=== PATIENT | female | born 1945 | race Caucasian/White ===

== ENCOUNTER 2021-05-09 19:26 | Emergency (ER) | payer MEDICARE, OTHER ==
[~2021-05-09] VITALS: Ht 165.1 cm; Wt 95.2 kg
[2021-05-09 20:01] LABS: BASOPHILS ABSOLUTE AUTO 0.06 K/mm3 (0.00-0.23); BASOPHILS PERCENT AUTO 1 % (0-2); EOSINOPHILS ABSOLUTE AUTO 0.04 K/mm3 (0.00-0.68); EOSINOPHILS PERCENT AUTO 0 % (0-6); Hematocrit 40.6 % (33.0-51.0); IMMATURE GRAN ABSOLUTE AUTO 0.04 K/mm3 (0.00-0.10); IMMATURE GRAN PERCENT AUTO 0 % (0-1); LYMPHOCYTES ABSOLUTE AUTO 0.79 K/mm3 (0.84-5.20); LYMPHOCYTES PERCENT AUTO 7 % (21-46); MONOCYTES ABSOLUTE AUTO 0.92 K/mm3 (0.16-1.47); MONOCYTES PERCENT AUTO 9 % (4-13); Mean Corpuscular Volume 94 fL (80-100); Mean Platelet Volume 9.1 fL (9.1-12.4); NEUTROPHILS ABSOLUTE AUTO 8.83 K/mm3 (1.96-9.15); NEUTROPHILS PERCENT AUTO 83 % (41-73); Platelet Count 212 K/mm3 (150-400); RDW Coefficient Variation 12.6 % (11.7-14.2); RDW Standard Deviation 43.5 fL (35.1-46.3); Red Blood Cell Count 4.34 M/mm3 (3.80-5.20); White Blood Cell Count 10.68 K/mm3 (4.00-11.30)
[2021-05-09 20:11] LABS: Alanine Aminotransfer (ALT/SGP 15 U/L (12-78); Albumin, Blood 2.9 g/dL (3.4-5.0); Albumin/Globulin Ratio 0.7 (0.8-1.8); Alk Phos 96 U/L (50-136); Anion Gap 5 mmol/L (6-16); Aspartate Aminotrans (AST/SGOT 18 U/L (12-37); Bilirubin, Total 0.6 mg/dL (0.1-1.0); Blood Urea Nitrogen 16 mg/dL (8-24); Bun/Creatinine Ratio 15.4 (12.0-20.0); CO2, Blood 25 mmol/L (21-32); Calcium, Blood 8.6 mg/dL (8.5-10.1); Chloride, Blood 108 mmol/L (98-108); Creatinine, Blood 1.04 mg/dL (0.40-1.00); Globulin, Blood 3.9 g/dL (2.2-4.0); Glomerular Filtration Rate 51 (60-); Glucose, Blood 148 mg/dL (70-99); Potassium, Blood 4.2 mmol/L (3.5-5.5); Sodium, Blood 138 mmol/L (136-145); Total Protein, Blood 6.8 g/dL (6.4-8.2); Troponin I <0.015 ng/mL (0.000-0.040)
[2021-05-09 21:24] LABS: Source, Urine Catheter
[2021-05-09 21:29] LABS: Appearance, Urine Cloudy (Clear); Bilirubin, Urine Neg (Neg); Blood, Urine 5+ (Neg); Color, Urine Yellow (P-Yellow); Glucose Qualitative, Urine Neg (Neg); Ketones, Urine Neg (Neg); Leukocyte Esterase, Urine 3+ (Neg); Nitrite, Urine Pos (Neg); Protein, Urine 3+ (Neg); Urobilinogen, Urine NORM (Normal); pH, Urine 6.5 (5.0-8.0)
[2021-05-09 21:35] LABS: Bacteria Mod /hpf; Red Blood Cells, Urine TNTC /hpf (0-2); Squamous Epithelial Cells Not Seen /hpf (Few); White Blood Cells, Urine TNTC /hpf (0-5)
[2021-05-09] MEDS ORDERED: CIPR500 PO (23:19)
== END 2021-05-09 23:40 | disposition home or self-care (01) ==
LOC: ER 19:26
PROVIDERS: Student in an Organized Health Care Education/Training Program
DX: N39.0 Urinary tract infection, site not specified (principal); E86.0 Dehydration; Z86.711 Personal history of pulmonary embolism; Z85.118 Personal history of other malignant neoplasm of bronchus and lung
CPT/HCPCS: 36415; 80053; 81001; 84484; 85025; 87077; 87086; 87186; 93005; 93010; 96365; 99284-25; J0696; J7030; P9612

== ENCOUNTER 2022-12-21 20:11 | Inpatient (IN) | payer OTHER, MEDICARE ==
[~2022-12-21] VITALS: Ht 162.6 cm; Wt 78.0 kg
[~2022-12-21 20:11] MED LIST: CIPR500 PO; JANTOVEN5 M2 PO; Nitrofurantoin100 M1 PO; PREGABALIN100 MG PO
[2022-12-21 22:50] LABS: BASOPHILS ABSOLUTE AUTO 0.07 K/mm3 (0.00-0.23); BASOPHILS PERCENT AUTO 1 % (0-2); EOSINOPHILS ABSOLUTE AUTO 0.08 K/mm3 (0.00-0.68); EOSINOPHILS PERCENT AUTO 1 % (0-6); Hematocrit 39.3 % (33.0-51.0); Hemoglobin 12.8 g/dL (11.5-16.0); IMMATURE GRAN ABSOLUTE AUTO 0.04 K/mm3 (0.00-0.10); IMMATURE GRAN PERCENT AUTO 0 % (0-1); LYMPHOCYTES ABSOLUTE AUTO 1.94 K/mm3 (0.84-5.20); LYMPHOCYTES PERCENT AUTO 19 % (21-46); MONOCYTES ABSOLUTE AUTO 0.94 K/mm3 (0.16-1.47); MONOCYTES PERCENT AUTO 9 % (4-13); Mean Corpuscular HGB Conc 32.6 g/dL (31.5-36.5); Mean Corpuscular Volume 92 fL (80-100); Mean Platelet Volume 9.6 fL (9.1-12.4); NEUTROPHILS PERCENT AUTO 70 % (41-73); NRBC ABSOLUTE 0.02 K/mm3 (0.00-0.02); NRBC Auto 0.2 /100 WBC (0.0-0.2); Platelet Count 167 K/mm3 (150-400); RDW Coefficient Variation 14.2 % (11.7-14.2); RDW Standard Deviation 47.8 fL (35.1-46.3); Red Blood Cell Count 4.27 M/mm3 (3.80-5.20); White Blood Cell Count 10.07 K/mm3 (4.00-11.30)
[2022-12-21 22:57] LABS: Source, Urine Clean Catch
[2022-12-21 23:01] LABS: Bilirubin, Urine Neg (Neg); Blood, Urine 5+ (Neg); Glucose Qualitative, Urine Neg (Neg); Ketones, Urine Neg (Neg); Leukocyte Esterase, Urine 3+ (Neg); Nitrite, Urine Pos (Neg); Protein, Urine 3+ (Neg); Urobilinogen, Urine NORM (Normal)
[2022-12-21 23:04] LABS: Appearance, Urine Cloudy (Clear); Color, Urine Yellow (P-Yellow)
[2022-12-21 23:05] LABS: International Normalized Ratio 2.08
[2022-12-21 23:07] LABS: Amorphous Light (0-Heavy); Bacteria Many /hpf; Red Blood Cells, Urine 0-2 /hpf (0-2); Squamous Epithelial Cells Not Seen /hpf (Few); White Blood Cells, Urine TNTC /hpf (0-5)
[2022-12-21 23:10] LABS: Albumin, Blood 3.3 g/dL (3.4-5.0); Albumin/Globulin Ratio 0.8 (0.8-1.8); Bilirubin, Total 0.3 mg/dL (0.1-1.0); Bun/Creatinine Ratio 24.8 (12.0-20.0); Calcium, Blood 9.5 mg/dL (8.5-10.1); Creatinine, Blood 1.09 mg/dL (0.40-1.00); Globulin, Blood 4.3 g/dL (2.2-4.0); Potassium, Blood 4.6 mmol/L (3.5-5.5); Total Protein, Blood 7.6 g/dL (6.4-8.2)
--- NOTE | 2022-12-22 01:13 | NUR ---
PT HERE VIA [facility] FROM ER. PT TRANSFERRED TO MEDICAL FLOOR BED WITH SLIDER SHEET. PT DENIES ANY PAIN AT THIS TIME. PT DOES EXPERIENCE PAIN WITH MOVEMENT FROM SIDE TO SIDE FOR SHEET REMOVAL, BUT ONCE SETTLED BACK INTO BED, DENIES ANY PAIN. PT'S SKIN COLOR IS PALE. PT IS FOLLOWED BY [facility] FOR COCCYX WOUND, THAT SHANNON, SON REPORTS IS HEALING. SHANNON IS IN THE PROCESS OF MOVING IN WITH HIS MOTHER. HE IS CURRENTLY THE PRIMARY CAREGIVER TO HER. OTHERWISE, SHE LIVES INDEPENDENTLY AT HOME. REVIEWED CALL LIGHT, PHONE, AND ORIENTED TO ROOM. BED ALARM ON FOR SAFETY. INCENTIVE SPIROMETER PROVIDED WITH INSTRUCTIONS - PT DEMONSTRATED USE. WILL CONTINUE TO MONITOR THROUGHOUT THE NIGHT. LR INFUSING UPON ADMISSION TO ROOM.
[2022-12-22 01:23] VITALS: BP 121/57
[2022-12-22] MEDS ORDERED: CETI5 PO (01:52)
[2022-12-22] MEDS ORDERED: OMEP20ER PO (01:52)
[2022-12-22] MEDS ORDERED: DOCU100 PO (01:54)
[2022-12-22] MEDS ORDERED: THERA-D2000 UNIT PO (01:54)
[2022-12-22] MEDS ORDERED: LACT PO (01:55)
--- NOTE | 2022-12-22 03:00 | NUR ---
PT IS SLEEPING. CALL LIGHT IN REACH. BED ALARM.
[2022-12-22 05:11] VITALS: BP 95/56
--- NOTE | 2022-12-22 05:57 | NUR ---
SHIFT SUMMARY - NO ACUTE CHANGES SINCE ADMIT LAST NOC. PT DEMONSTRATED USE OF INCENTIVE SPIROMETER SHORTLY AFTER ADMIT. PT'S SKIN COLOR CONTINUES PALE. PT HAS BEEN SLEEPING FOR APPX 3 HOURS. PT AWAKENS TO VERBAL COMMUNICATION THIS AM, PT FLOATED ON PILLOWS. PT HAS HER OWN ATTENDS ON, CONTINUE DRY SINCE ADMIT. PT DIDN'T REPORT ANY PAIN WHEN REPOSITIONED THIS AM, AND DRIFTED OFF BACK TO SLEEP AFTER REPOSITIONING. PT AND SON, SHANNON DID REPORT PT HAD A COUGHING EPISODE AFTER TAKING HER COUMADIN PRIOR TO ADMIT. CALL LIGHT WITHIN REACH. BED IN LOW POSITION. BED ALARM ON FOR PT SAFETY. WILL CONTINUE TO MONITOR UNTIL AM SHIFT CHANGE.
--- NOTE | 2022-12-22 06:32 | NUR ---
CONTACTED DR. WHELAN - UPDATED ON PT'S LS WITH CRACKLES AND WHEEZES THROUGHOUT - AND REPORTED SHE IS ON RA - HE REPORTED TO CONTINUE TO MONITOR HER. SATS WNL ON RA. WILL REPORT THIS OFF TO ONCOMING SHIFT.
[2022-12-22 07:36] VITALS: BP 101/56
[2022-12-22 15:32] VITALS: BP 100/60
--- NOTE | 2022-12-22 18:47 | NUR ---
SHIFT SUMMARY PT AXO, PLEASANT AND COOPERATIVE WITH CARE THOUGH [place]. PT LUNG SOUND COARSE AND WHEEZY THROUGHOUT THE SHIFT. RT FOR BREATHING TREATMENTS, FLUTTER VALUE AND I.S. PT O2 92-94 THOUGHOUT THE SHIFT THOUGH AT 1800, PT SON NOTIFIED NURSE THAT PT BREATHING WHILE ASLEEP SOUNDED "BAD." THIS NURSE IN TO ASSESS AT PT O2 SAT DROPPED TO 86% ON RA. PT PLACED ON 2.5 L AND IS 94% AT THIS TIME. PT NPO EXCEPT MEDS WHOLE IN APPLESAUCE AWAITING SWALLOW EVAL. PT'S SON WOULD LIKE PATIENT TO BE EVALUATED BY PHYSICAL THERAPY PRIOR TO DC HOME. PT INCONTINENT. ATTENDS IN PLACE. MEPILEX TO COCCYX AND PHOTO OF COCCYX IN CHART. BED IN LOW POSITION, CALL LIGHT WITHIN REACH. PTS SON AT BEDSIDE.
[2022-12-22] MEDS ORDERED: WARF5 PO (19:26)
[2022-12-22] MEDS ORDERED: TEMOVATE15 G1 TOP (19:30)
[2022-12-22] MEDS ORDERED: Ketoconazole120 ML TOP (19:31)
[2022-12-22] MEDS ORDERED: METR59TL TOP (19:34)
[2022-12-22] MEDS ORDERED: ESTRADIOL42.5 GM TOP (19:35)
[2022-12-23 05:02] LABS: Hematocrit 34.6 % (33.0-51.0); Hemoglobin 11.4 g/dL (11.5-16.0); Mean Corpuscular HGB 29.8 pg (26.0-34.0); Mean Corpuscular HGB Conc 32.9 g/dL (31.5-36.5); Mean Corpuscular Volume 90 fL (80-100); Mean Platelet Volume 9.7 fL (9.1-12.4); Platelet Count 170 K/mm3 (150-400); RDW Coefficient Variation 14.1 % (11.7-14.2); RDW Standard Deviation 47.1 fL (35.1-46.3); Red Blood Cell Count 3.83 M/mm3 (3.80-5.20); White Blood Cell Count 15.64 K/mm3 (4.00-11.30)
[2022-12-23 05:19] LABS: International Normalized Ratio 2.5; Prothrombin Time Results 24.9 Sec (9.7-11.5)
[2022-12-23 05:29] LABS: Bun/Creatinine Ratio 31.6 (12.0-20.0); Calcium, Blood 8.9 mg/dL (8.5-10.1); Creatinine, Blood 0.92 mg/dL (0.40-1.00); Potassium, Blood 4.9 mmol/L (3.5-5.5)
--- NOTE | 2022-12-23 06:26 | NUR ---
O2 SATS STEADY AT 88% ON RA, PLACED ON 5L NC TO STABILIZE THEN REDUCED TO 2L TO MAINTAIN. COARSE AND WHEEZING LUNG SOUNDS. TOLERATING PILLS CRUSHED IN APPLESAUCE WITH NO SIGNS OF ASPIRATING. OXYCODONE 5 MG X2 FOR R RIB PAIN. IV IS POSITIONAL BUT FLUSHES NICELY. ORIENTED WITH INTERMITTENT CONFUSION, PLEASANT, FORGETS TO USE CALL LIGHT WHEN SHE NEEDS ASSISTANCE, ROUND REGULARLY.
[2022-12-23 08:02] VITALS: BP 101/60
--- NOTE | 2022-12-23 11:27 | NUR ---
LATE ENTRY: 10AM PT REMAINS A&O X3, STARTED TALKING ABOUT PEOPLE ON THE TV ARE HER FRIENDS AND IS STATING "NOW READY FOR HER SURGERY TO BE A MAN". SON IN ROOM STATING UNLIKE HER. DR. ARROYO AWARE, VERBAL ORDERS RECEIVED TO CHANGE MEDS.
[2022-12-23 16:21] VITALS: BP 94/56
--- NOTE | 2022-12-23 17:43 | NUR ---
SHIFT SUMMARY: Pt alert and oriented throughout shift with episodes of confusion. Meds changed as ordered. No further c/o pain after am narcotic. Up to chair with PT. Back to bed at 1500 with 2 person ast. Redness noted to to coccyx. Mepiplex placed. Pt recs rehab, pt son who cares for pt agreeable to plan. Lung sounds diminished, on 3L nc. IS spirometer and flutter valve utilized. Pt tolerating nectar thick without straws. Swallowing pills whole without difficulty.
[2022-12-23 19:42] VITALS: BP 108/56
[2022-12-24 02:43] VITALS: BP 137/74
[2022-12-24 05:37] LABS: BASOPHILS ABSOLUTE AUTO 0.02 K/mm3 (0.00-0.23); BASOPHILS PERCENT AUTO 0 % (0-2); EOSINOPHILS ABSOLUTE AUTO 0.01 K/mm3 (0.00-0.68); EOSINOPHILS PERCENT AUTO 0 % (0-6); Hematocrit 34.7 % (33.0-51.0); Hemoglobin 11.5 g/dL (11.5-16.0); IMMATURE GRAN ABSOLUTE AUTO 0.17 K/mm3 (0.00-0.10); IMMATURE GRAN PERCENT AUTO 1 % (0-1); LYMPHOCYTES ABSOLUTE AUTO 0.93 K/mm3 (0.84-5.20); LYMPHOCYTES PERCENT AUTO 7 % (21-46); MONOCYTES ABSOLUTE AUTO 0.43 K/mm3 (0.16-1.47); MONOCYTES PERCENT AUTO 3 % (4-13); Mean Corpuscular HGB 30.2 pg (26.0-34.0); Mean Corpuscular HGB Conc 33.1 g/dL (31.5-36.5); Mean Corpuscular Volume 91 fL (80-100); Mean Platelet Volume 9.9 fL (9.1-12.4); NEUTROPHILS ABSOLUTE AUTO 12.73 K/mm3 (1.96-9.15); NEUTROPHILS PERCENT AUTO 89 % (41-73); Platelet Count 175 K/mm3 (150-400); RDW Coefficient Variation 14.4 % (11.7-14.2); RDW Standard Deviation 47.7 fL (35.1-46.3); Red Blood Cell Count 3.81 M/mm3 (3.80-5.20); White Blood Cell Count 14.29 K/mm3 (4.00-11.30)
[2022-12-24 05:49] LABS: International Normalized Ratio 2.68; Prothrombin Time Results 26.6 Sec (9.7-11.5)
[2022-12-24 06:02] LABS: Bun/Creatinine Ratio 33.8 (12.0-20.0); Calcium, Blood 8.9 mg/dL (8.5-10.1); Creatinine, Blood 0.98 mg/dL (0.40-1.00); Potassium, Blood 4.6 mmol/L (3.5-5.5)
--- NOTE | 2022-12-24 06:19 | NUR ---
COARSE, WET LUNG SOUNDS, ORIENTED AT START OF SHIFT, AOX2 DURING THE NIGHT. DID NOT SLEEP UNTIL APPROXIMATELY 0400. MEDICATED FOR R RIB PAIN. SHALLOW BREATHING WITH OCCASIONAL DEEP BREATH AND COUGH. COOPERATIVE WITH CARES.
[2022-12-24 07:37] VITALS: BP 113/63
[2022-12-24 17:35] VITALS: BP 100/57
--- NOTE | 2022-12-24 18:14 | NUR ---
SHIFT SUMMARY: Pt remains A&O X3 with bouts of confusion. Pain managed with scheduled regime. Up to bathroom with 1 person ast and walker. Up in chair since noon. VSS. Resp even nonlabored. Oxygen titrated from 3L to RA. O2 sat 92-93%. Tolerating nectar thick with whole pills. IVF dc'd as ordered. Incontinent of bladder. Brief in place. Hygiene care provided as needed. Son at bedside. No c/o. Will continue to follow this shift
[2022-12-25 05:19] LABS: International Normalized Ratio 2.41; Prothrombin Time Results 24.1 Sec (9.7-11.5)
--- NOTE | 2022-12-25 06:19 | NUR ---
O2 SATS AT 92-94 ON RA, COARSE AND WHEEZING LUNG SOUNDS WITH OCCASIONAL COUGH WITH SCANT PRODUCTION. COUGHING INCREASES R RIB FRACTURE PAIN. TRAMADOL AT ~ 0500. CONFUSION ABOUT PLACE AND CURRENT SITUATION BUT REDIRECTABLE AND PLEASANT. INCONTINENT OF URINE. X1 ASSIST WITH WALKER AND GB TO TRANSFER FROM CHAIR TO BED. TOLERATING THICKENED LIQUIDS AND WHOLE PILLS.
[2022-12-25 07:49] VITALS: BP 123/58
[2022-12-25 07:53] VITALS: BP 123/58
[2022-12-25] MEDS ORDERED: ACET325 PO (10:00)
[2022-12-25] MEDS ORDERED: ALBU2.5V5 INH (10:01)
[2022-12-25] MEDS ORDERED: ACET500 PO (10:01)
[2022-12-25] MEDS ORDERED: CEPH500 PO (10:01)
[2022-12-25] MEDS ORDERED: TRAM50 PO (10:02)
--- NOTE | 2022-12-25 14:05 | NUR ---
DISCHARGE NOTE PT DISCHARGED TO [facility], TRANSPORTED BY HER SON, SHANNON. O2 WAS PROVIDED FOR TRANSPORT AND HER SON IS GOING TO RETURN THE TANK. IV WAS REMOVED SUCCESSFULLY BY THE MASTER PILOT. REPORT WAS GIVEN TO CECILE BENNETT RN, AT [facility]. PERSONAL BELONGINGS ALSO RETURNED. PT WAS TAKEN TO HIS VEHCILE BY THE MASTER PILOT AND MASTER PILOT STUDENT.
== END 2022-12-25 14:00 | DRG 184 ==
LOC: ER 20:11 → MEDS 20:12 → ENPENDDIS 12-25 08:19 → MEDS 12-25 14:00
PROVIDERS: Internal Medicine; Student in an Organized Health Care Education/Training Program; ADMIT Internal Medicine
DX: S22.41XA Multiple fractures of ribs, right side, initial encounter for closed fracture (principal); J44.1 Chronic obstructive pulmonary disease with (acute) exacerbation; N39.0 Urinary tract infection, site not specified; G62.9 Polyneuropathy, unspecified; R82.998 Other abnormal findings in urine; R13.10 Dysphagia, unspecified; Z88.2 Allergy status to sulfonamides; Z86.711 Personal history of pulmonary embolism; Z79.01 Long term (current) use of anticoagulants; Z79.2 Long term (current) use of antibiotics; Z85.118 Personal history of other malignant neoplasm of bronchus and lung; W01.198A Fall on same level from slipping, tripping and stumbling with subsequent striking against other object, initial encounter; Y92.002 Bathroom of unspecified non-institutional (private) residence as the place of occurrence of the external cause
CPT/HCPCS: 36415; 70450; 71100; 72125; 74230; 80048; 80053; 81001; 85025; 85027; 85610; 87077; 87086; 87186; 92526; 92610; 92611; 94640; 94664; 94760; 96374-59; 96375; 96375-59; 97110; 97162; 97166; 97530; 97535; 99285-25; A9270; G0378; J0696; J1885; J2270; J2920; J3010; J7030; J7120; J7512

== ENCOUNTER 2023-01-21 17:14 | Inpatient (IN) | payer MEDICARE, OTHER ==
[~2023-01-21] VITALS: Ht 170.2 cm; Wt 73.5 kg
[~2023-01-21 17:14] MED LIST changes: +ACET325 PO; +ACET500 PO; +ALBU2.5V5 INH; +CEPH500 PO; +CETI5 PO; +DOCU100 PO; +ESTRADIOL42.5 GM TOP; +Ketoconazole120 ML TOP; +LACT PO; +METR59TL TOP; +OMEP20ER PO; +TEMOVATE15 G1 TOP; +THERA-D2000 UNIT PO; +TRAM50 PO; +WARF5 PO
[2023-01-21 18:03] LABS: BASOPHILS ABSOLUTE AUTO 0.04 K/mm3 (0.00-0.23); BASOPHILS PERCENT AUTO 0 % (0-2); EOSINOPHILS ABSOLUTE AUTO 0.01 K/mm3 (0.00-0.68); EOSINOPHILS PERCENT AUTO 0 % (0-6); Hematocrit 39.4 % (33.0-51.0); Hemoglobin 13.2 g/dL (11.5-16.0); IMMATURE GRAN ABSOLUTE AUTO 0.07 K/mm3 (0.00-0.10); IMMATURE GRAN PERCENT AUTO 1 % (0-1); LYMPHOCYTES ABSOLUTE AUTO 0.94 K/mm3 (0.84-5.20); LYMPHOCYTES PERCENT AUTO 7 % (21-46); MONOCYTES ABSOLUTE AUTO 1.26 K/mm3 (0.16-1.47); MONOCYTES PERCENT AUTO 9 % (4-13); Mean Corpuscular HGB 30.6 pg (26.0-34.0); Mean Corpuscular HGB Conc 33.5 g/dL (31.5-36.5); Mean Corpuscular Volume 91 fL (80-100); NEUTROPHILS ABSOLUTE AUTO 11.54 K/mm3 (1.96-9.15); NEUTROPHILS PERCENT AUTO 83 % (41-73); Platelet Count 204 K/mm3 (150-400); RDW Coefficient Variation 13.6 % (11.7-14.2); RDW Standard Deviation 46.1 fL (35.1-46.3); Red Blood Cell Count 4.32 M/mm3 (3.80-5.20); White Blood Cell Count 13.86 K/mm3 (4.00-11.30)
[2023-01-21 18:21] LABS: Albumin, Blood 2.7 g/dL (3.4-5.0); Albumin/Globulin Ratio 0.6 (0.8-1.8); Bilirubin, Total 0.4 mg/dL (0.1-1.0); Bun/Creatinine Ratio 20.6 (12.0-20.0); Calcium, Blood 8.9 mg/dL (8.5-10.1); Creatinine, Blood 0.87 mg/dL (0.40-1.00); Globulin, Blood 4.5 g/dL (2.2-4.0); Potassium, Blood 3.8 mmol/L (3.5-5.5); Total Protein, Blood 7.2 g/dL (6.4-8.2)
[2023-01-21 22:04] VITALS: BP 105/66
[2023-01-21 23:47] LABS: Anti-Xa UFH, PHA Monitoring <0.10 IU/mL; Prothrombin Time Results 60.9 Sec (9.7-11.5)
[2023-01-21 23:48] LABS: International Normalized Ratio 6.45
[2023-01-22] VITALS (7 sets, daily range): BP systolic 96–109; BP diastolic 47–63
[2023-01-22 03:53] LABS: Albumin, Blood 2.3 g/dL (3.4-5.0); Albumin/Globulin Ratio 0.5 (0.8-1.8); Bilirubin, Total 0.3 mg/dL (0.1-1.0); Bun/Creatinine Ratio 23.9 (12.0-20.0); Calcium, Blood 8.2 mg/dL (8.5-10.1); Creatinine, Blood 0.79 mg/dL (0.40-1.00); Globulin, Blood 4.2 g/dL (2.2-4.0); Potassium, Blood 3.6 mmol/L (3.5-5.5); Total Protein, Blood 6.5 g/dL (6.4-8.2)
[2023-01-22 09:19] LABS: Prothrombin Time Results 75.5 Sec (9.7-11.5)
[2023-01-22 09:20] LABS: International Normalized Ratio 8.09
--- NOTE | 2023-01-22 10:38 | NUR ---
AM NOTES: PT ALERT AND ORIENTED X2, PLEASANT AND COOPERATIVE WITH CARES, ANSWERS QUESTIONS APPROPRIATELY BUT HAS SOME CONFUSION. VITALS HRR SR 75, SBP SOFT 80-90'S, MAP >60, SATS KEPT ABOVE 90% ON 8L OF O2 VIA HI AURA, AFEBRILE. LUNGS WITH WHEEZES AND CRACKLES UPON AUSCULTATION INCENTIVE SPIROMETER PER PROVIDER, BREATHING TX PER RT. PT'S LAST INR WENT UP TO 8.06 FROM [address] REYES TO MONITOR PT FOR NOW SINCE PT DOESNT HAVE ANY ACTIVE BLEEDING, TO RECHECK INR TOMORROW PER PHARMACY. PT WAS SEEN BY SPEECH THERAPIST THIS MORNING TO START ON MECH SOFT NECTAR THICK LIQUID, MEDS WHOLE WITH APPLESAUCE. PT TO REMAIN BEDREST DUE TO HIGH INR LEVEL. PT IN BED RESTING PUREWICK IN PLACE WORKING APPROPRIATELY, DENIES CHEST DYSON/PRESSURE BACK PAIN WITH REPOSTIONING. NO OTHER ISSUES AT THIS TIME, WILL CONTINUE TO MONITOR
--- NOTE | 2023-01-22 19:05 | NUR ---
SEE AM NOTES: NO ACUTE CHNAGE FOR THE SHIFT PT REMAINED ALERT AND ORIENTED 2-3 FORGETFUL AT TIMES, ABLE TO ANSWER QUESTIONS APPROPRIATELY, ABLE TO MAKE NEEDS KNOWN. VITALS HRR SR 70'S, SBP 90-100'S MAP KEPT ABOVE 60, SATS ABOVE 90% ON 6L OF O2, AFEBRILE. PT HASNT HAD ANY URINE OUTPUT FOR THE DAY, PT WAS BLADDER SCANNED AND HAD >400MLS URINE RETAINED, STRAIGHT CATH WAS PERFORMED PT HAD 550MLS DARK CLOUDY URINE OUT, PUREWICK WAS REPLACED. PT TOLERATING MECH SOFT AND NECTAR THICK DIET PT WITH POOR APPETITE. PT RECEIVED A BED BATH TODAY. SON SHANNON AT BEDSIDE MOST OF THE SHIFT, UPDATED REGARDING PLAN OF CARE. NO OTHER ISSUES ENCOUNTERED NS RUNNING AT 75MLS/HR. NO ACTIVE BLEEDING NOTED AT THIS TIME, PT ON BEDREST DUE TO ELEVATED INR. CALL LIGHTS IN REACH WILL REPORT TO ONCOMING SHIFT
[2023-01-23 03:37] VITALS: BP 136/70
[2023-01-23 04:37] LABS: Hematocrit 32.3 % (33.0-51.0); Hemoglobin 10.7 g/dL (11.5-16.0); Mean Corpuscular HGB 29.7 pg (26.0-34.0); Mean Corpuscular HGB Conc 33.1 g/dL (31.5-36.5); Mean Corpuscular Volume 90 fL (80-100); Mean Platelet Volume 9.2 fL (9.1-12.4); Platelet Count 188 K/mm3 (150-400); RDW Coefficient Variation 13.6 % (11.7-14.2); RDW Standard Deviation 44.8 fL (35.1-46.3); White Blood Cell Count 16.13 K/mm3 (4.00-11.30)
--- NOTE | 2023-01-23 04:56 | NUR ---
SHIFT SUMMARY PT A&Ox1-2 TO SELF AND PERSON. PT VERY CONFUSED, DIFFICULT TO REDIRECT AT TIMES. PT TAKE O2 OFF AND FIDGETING WITH LINES, CAMERA MONITORING INITIATED FOR PT SAFETY. BP STABLE, SINUS 80's, DENIES CP/PRESSURE. SpO2> 92% ON 3-5L VIA NC, REPORTS SOB AT TIMES. PT WITH VERY THICK SPUTUM AND MOIST COUGH, RT PROVIDING BREATHING TREATMENTS, AND FLUTTER THERAPY. PT RETAINING URINE, BLADDER SCANS AND STRAIGHT CATHS PROVIDED WHEN APPROPRIATE. PT REMAINED BEDREST. NO S/S OF BLEEDING. NO OTHER EVENTS, WILL REPORT TO ONCOMING RN.
[2023-01-23 05:06] LABS: Prothrombin Time Results 56.5 Sec (9.7-11.5)
[2023-01-23 05:07] LABS: Bun/Creatinine Ratio 21.1 (12.0-20.0); Calcium, Blood 7.8 mg/dL (8.5-10.1); Creatinine, Blood 0.66 mg/dL (0.40-1.00); Potassium, Blood 3.3 mmol/L (3.5-5.5)
[2023-01-23 05:49] LABS: International Normalized Ratio 5.95
[2023-01-23 07:48] VITALS: BP 110/67
[2023-01-23 13:48] VITALS: BP 129/67
--- NOTE | 2023-01-23 15:19 | NUR ---
LATE ENTRY IN HOUSE TRANSFER PT TRANSFER FROM PCU. ALERT AND ORIENTED X2. SON AT PT BEDSIDE. 4L NC. LARGE WOUND ON COCCYX. Q2 TURNS. REPORTED PAIN IN RIBS AND BACK. TREATED PER EMAR. SET UP SUCTION, PT HAS LARGE AMOUNTS OF THICK SECRETIONS THAT IS DIFFICULT TO CLEAR. EDUCATED PT ON HOW TO USE. WILL REQUIRE MORE EDUCATION.
--- NOTE | 2023-01-23 15:31 | NUR ---
REPORT GIVEN TO FLORES PURVIS RN AT 1326.
[2023-01-23 19:49] VITALS: BP 131/64
[2023-01-24 04:38] VITALS: BP 106/61
[2023-01-24 05:04] LABS: Hematocrit 30.8 % (33.0-51.0); Mean Corpuscular HGB 29.7 pg (26.0-34.0); Mean Corpuscular HGB Conc 32.5 g/dL (31.5-36.5); Mean Corpuscular Volume 91 fL (80-100); Platelet Count 176 K/mm3 (150-400); RDW Coefficient Variation 13.8 % (11.7-14.2); RDW Standard Deviation 46.9 fL (35.1-46.3); Red Blood Cell Count 3.37 M/mm3 (3.80-5.20); White Blood Cell Count 11.66 K/mm3 (4.00-11.30)
[2023-01-24 05:22] LABS: Bun/Creatinine Ratio 16.7 (12.0-20.0); Calcium, Blood 7.6 mg/dL (8.5-10.1); Creatinine, Blood 0.66 mg/dL (0.40-1.00); Magnesium, Blood 1.8 mg/dL (1.6-2.4); Potassium, Blood 3.7 mmol/L (3.5-5.5)
[2023-01-24 05:25] LABS: Prothrombin Time Results 44.5 Sec (9.7-11.5)
[2023-01-24 05:40] LABS: International Normalized Ratio 4.62
--- NOTE | 2023-01-24 06:19 | NUR ---
SHIFT SUMMARY PATIENT C/O NAUSEA AND 8/10 BACK PAIN UNRELIEVED BY TYLENOL. ZANE KAMINSKI NOTIFIED, ORDERED OBTAINED FOR PATIENTS HOME TRAMADOL DOSE AND PRN ZOFRAN. MEIDCATIONS HAD POSITIVE EFFECT. BLADDER SCAN AROUND 2200 SHOWED 320CC IN BLADDER. NEXT BLADDER SCAN SHOWED 608CC AT [address] WHELAN WHO WROTE FOR A MORELOS INSERTION PATIENT HAS ALREADY BEEN STRAIGHT CATHED [address] RETURNING TO PL[address] MORELOS PATIENT HAD VOIDED A LARGE AMOUNT WITH ONLY 100CC REMANING IN BLADDER. PATIENT C/O BAD BACK PAIN AT THIS TIME, PRN TYLENOL GIVEN WITH NO EFFECT. HEAT PAD PLACED ON PATIENT WITH POSITIVE EFFECT, PT DECLINED RECEIVING TRAMADOL AT THIS TIME AND RESTING COMFORTABLY WITH CALL DE LA CRUZ IN REACH. AT 0540 CRITICAL LAB RECEIVED OF INR 4.62. MD NOT NOTIFIED AT THIS TIME DUE TO ALREADY AWARE HIGH INR WHICH IS TRENDING DOWN, THIS WAS DISCUSSED WITH CHARGE NURSE LIBIA.
[2023-01-24 07:12] VITALS: BP 111/65
[2023-01-24 17:13] VITALS: BP 111/62
[2023-01-24 19:20] LABS: Source, Urine Foley catheter
[2023-01-24 19:23] LABS: Appearance, Urine Clear (Clear); Bilirubin, Urine Neg (Neg); Blood, Urine Neg (Neg); Color, Urine Yellow (P-Yellow); Glucose Qualitative, Urine Neg (Neg); Ketones, Urine Neg (Neg); Leukocyte Esterase, Urine 1+ (Neg); Nitrite, Urine Neg (Neg); Protein, Urine 1+ (Neg); Specific Gravity, Urine 1.015 (1.003-1.022); Urobilinogen, Urine 1+ (Normal)
--- NOTE | 2023-01-24 19:23 | NUR ---
SHIFT SUMMARY PATIENT WITH INCREASED CONGESSTION TODAY, DR ORDERED INCENTIVE SPIROMETER. PATIENT WITH PAIN THIS AM WHEN TRYING TO STAND TO ATTEMPT VOIDING DUE TO BLADDER WITH 487ML, PATIENT IN SO MUCH PAIN SHE WAS UNABLE TO SIT UP FOR THE TRAMADOL. DR ARROYO ORDERED TORADOL IV FOR PAIN. 1 DOSE GIVEN, PAIN LEVEL FROM 8 TO 7. PATIENT UP FOR LUNCH AND ABLE TO THEN TAKE TRAMADOL DOSE WITHT SOME RELIEF. SON PRESENT FOR MOST OF AFTERNOON. MORELOS CATHETER PLACED PER ORDER DUE TO RETENTION.
[2023-01-24 19:41] VITALS: BP 109/68
[2023-01-24 19:45] LABS: Bacteria Few /hpf; Mucus Light (0-Heavy); Squamous Epithelial Cells Few /hpf (Few)
[2023-01-25 04:21] VITALS: BP 111/58
--- NOTE | 2023-01-25 06:00 | NUR ---
SHIFT SUMMARY C/O BACK PAIN AT BEGINNING OF SHIFT. MEDICATED PT WITH PRN TRAMADOL WITH POSITIVE EFFECT. SLEPT ALL NIGHT WITH CALL DE [place] CRUZ IN REACH NO ACUTE EVENTS OR OTHER C/O PAIN.
[2023-01-25 06:50] LABS: Prothrombin Time Results 42.2 Sec (9.7-11.5)
[2023-01-25 06:59] LABS: International Normalized Ratio 4.37
[2023-01-25 07:07] VITALS: BP 115/67
--- NOTE | 2023-01-25 11:13 | NUR ---
NOTE: FLUIDS STOPPED PER DR. ARROYO
[2023-01-25 15:10] VITALS: BP 103/55
--- NOTE | 2023-01-25 15:26 | NUR ---
DRESSING CHANGE MEPALEX TO COCCYX CHANGED THIS SHIFT, CREAM ALSO APPLIED. PT TOLERATED FAIR.
--- NOTE | 2023-01-25 16:32 | NUR ---
SHIFT SUMMARY PT AOX2-3, FORGETFUL BUT REDIRECTABLE HOWEVER IT TAKES A BIT OF TIME. HER APPETITE APPEARS TO BE IMPROVING, SHE IS TOLERATING THE NECTAR THICK LIQUIDS WELL. PT DID REFUSE REPOSITIONING EARLIER IN THE SHIFT BUT WAS ABLE TO REPOSITION AFTER LUNCH TIME. SHE FLUCTUATES BETWEEN NEEDING 3-5L NC. PT REMAINS ON CAMERA AND HAS A MORELOS. PT'S SON HAS BEEN AT THE BS A MAJORITY OF THE AFTERNOON. HE IS HELPFUL WITH HER CARE AND ENCOURAGES HER TO USE THE IS AND FLUTTER. CALL LIGHT WITHIN REACH, BED IN THE LOWEST POSITION. WILL REPORT TO ONCOMING NURSE.
[2023-01-25 20:03] VITALS: BP 120/55
[2023-01-26 04:42] VITALS: BP 119/56
[2023-01-26 04:45] LABS: BASOPHILS ABSOLUTE AUTO 0.06 K/mm3 (0.00-0.23); BASOPHILS PERCENT AUTO 1 % (0-2); EOSINOPHILS ABSOLUTE AUTO 0.18 K/mm3 (0.00-0.68); EOSINOPHILS PERCENT AUTO 2 % (0-6); Hematocrit 31.6 % (33.0-51.0); Hemoglobin 10.1 g/dL (11.5-16.0); IMMATURE GRAN PERCENT AUTO 1 % (0-1); LYMPHOCYTES PERCENT AUTO 22 % (21-46); MONOCYTES ABSOLUTE AUTO 0.86 K/mm3 (0.16-1.47); MONOCYTES PERCENT AUTO 11 % (4-13); Mean Corpuscular HGB 29.3 pg (26.0-34.0); Mean Corpuscular Volume 92 fL (80-100); Mean Platelet Volume 8.9 fL (9.1-12.4); NEUTROPHILS ABSOLUTE AUTO 5.08 K/mm3 (1.96-9.15); NEUTROPHILS PERCENT AUTO 63 % (41-73); Platelet Count 213 K/mm3 (150-400); RDW Coefficient Variation 13.6 % (11.7-14.2); Red Blood Cell Count 3.45 M/mm3 (3.80-5.20); White Blood Cell Count 8.08 K/mm3 (4.00-11.30)
[2023-01-26 05:06] LABS: Prothrombin Time Results 40.8 Sec (9.7-11.5)
[2023-01-26 05:15] LABS: Bun/Creatinine Ratio 10.6 (12.0-20.0); Calcium, Blood 8.1 mg/dL (8.5-10.1); Creatinine, Blood 0.76 mg/dL (0.40-1.00); Potassium, Blood 3.4 mmol/L (3.5-5.5)
[2023-01-26 05:51] LABS: International Normalized Ratio 4.22
--- NOTE | 2023-01-26 06:04 | NUR ---
SHIFT SUMMARY PT VERY SLEEPY THIS SHIFT. DID C/O BACK PAIN ONCE THIS SHIFT REQUIRING PRN TRAMADOL. NO OTHER COMPLAINTS, SLEPT THROUGH THE NIGHT ON 6L NC. STOOL SOFTENERS AND LAXATIVES GIVEN, NO BM THIS SHIFT.
[2023-01-26 07:47] VITALS: BP 116/63
[2023-01-26 15:46] VITALS: BP 112/56
--- NOTE | 2023-01-26 16:08 | NUR ---
SHIFT SUMMARY PT AOX2-3, MORE INTERACTIVE THIS SHIFT. HER SON IS AT THE BS PLAYING THE [employer]UCampalyst[employer]. SHE HAS BEEN MEDICATED FOR PAIN THIS SHIFT PER THE EMAR. ENCOURAGING FLUID AND FOOD INTAKE. PER DR. ARROYO, PT IS TO START BLADDER TRAINING WITH POTENTIAL MORELOS REMOVAL TOMORROW. WILL ATTEMPT TO GET PT INTO A CHAIR VIA LIFT FOR DINNER. PT REMAINS ON A CAMERA. HER INR CONTINUES TO TREND DOWN. ORAL CARE DONE THIS SHIFT. CALL LIGHT WITHIN REACH, BED IN THE LOWEST POSITION. WILL REPORT TO ONCOMING NURSE.
[2023-01-26 20:12] VITALS: BP 122/62
[2023-01-27 02:37] VITALS: BP 134/61
[2023-01-27 05:51] LABS: International Normalized Ratio 2.54; Prothrombin Time Results 25.3 Sec (9.7-11.5)
--- NOTE | 2023-01-27 06:18 | NUR ---
SHIFT SUMMARY PT IN CHAIR AT BEGINNING OF SHIFT, REQUESTED PAIN MEDICATION BEFORE RETURNING TO BED. TRAMADOL GIVEN X1 THIS SHIFT, NO OTHER C/O PAIN. BLADDER TRAINING COMPLETED Q4H. PT SLEPT ABOUT 4 HOURS STRAIGHT AND THEN MOSTLY AWAKE AFTER 1AM, WITH SMALL FRAGMENTED SLEEP. NO BM THIS SHIFT.
[2023-01-27 07:45] VITALS: BP 119/57
[2023-01-27 16:19] VITALS: BP 97/62
--- NOTE | 2023-01-27 18:25 | NUR ---
SHIFT SUMMARY PT AOX2, MAX ASSIST TO THE CHAIR. SHE HAS BEEN UP IN THE CHAIR SINCE LUNCH AND TOLERATING IT WELL. HER SON HAS BEEN AT THE BS THIS SHIFT. HER APPETITE IS SLOWLY IMPROVING BUT HER FLUID INTAKE IS LOW. HER MORELOS CATHETER HAS BEEN REMOVED AND SHE TOLERATED IT WELL. PLAN IS FOR HER TO RETURN TO [facility] TO CONTINUE REHABILITATION. PT/OT WILL CONTINUE TO WORK WITH HER WHILE ADMITTED. PT WAS MEDICATED FOR PAIN PER THE EMAR. CALL LIGHT WITHIN REACH, BED IN THE LOWEST POSITION. WILL REPORT TO ONCOMING NURSE.
[2023-01-27 20:18] VITALS: BP 100/81
[2023-01-28 02:56] VITALS: BP 119/56
--- NOTE | 2023-01-28 04:48 | NUR ---
Urinary Retention + Straight Cath Per day report pt had Lane removed early in the day shift and then had no voids all shift. Pt had not voided tonight except for around 10 mL. Bladder scan revealed 406 mL. Called hospitalist who ordered straight cath and then rescan in 6 hours. At 0430 I drained 600 mL via straight cath. Pt has stated throughout the night that she cannot void and doesn't feel the pressure of needing to void.
--- NOTE | 2023-01-28 06:17 | NUR ---
Shift Summary Pt very lethargic and somnolent t/o most of this shift. Used lift to transport her from recliner to bed because she was unable to make any effort to get out of chair. AOx1-2 with limited mumbled communication. Pt is retaining urine for the past 18 hours and was straight cathed for 600 mL, see previous nursing note. Painful turns during patient care. While at rest no c/o of pain or discomfort. Slept t/o most of the night. Pt producing thick secretions from lungs, rhonchi in all lung howard. Suction at the bedside for occasional thick, harvey sputum. Occasional wet, hacking cough. Pt on 4L O2 to maintane O2 sat > 92%. For couple hours pt refused to wear NC and O2 sat was between 86-92, mostly at 87.
[2023-01-28 07:20] LABS: Bun/Creatinine Ratio 14.5 (12.0-20.0); Calcium, Blood 8.4 mg/dL (8.5-10.1); Creatinine, Blood 0.69 mg/dL (0.40-1.00); Potassium, Blood 3.8 mmol/L (3.5-5.5)
[2023-01-28 07:25] VITALS: BP 118/61
--- NOTE | 2023-01-28 09:02 | NUR ---
TRIED TO GET PATIENT UP IN CHAIR FOR BREAKFAST AND TO THE COMMODE TO ENCOURAGE VOID, PATIENT DECLINING ALL CARE,THERAPY WAS ABLE TO GET PATIENT TO DANGLE THEN ASSISTED BACK IN THE BED,REPOSITIONED FOWLERS AND SET UP MEAL TRAY,PATIENT DECLINED BREAKFAST AT THIS TIME.BED ALARM SET,CALL LIGHT IN REACH.
[2023-01-28 09:43] LABS: International Normalized Ratio 2.53; Prothrombin Time Results 25.2 Sec (9.7-11.5)
[2023-01-28 15:14] VITALS: BP 136/65
--- NOTE | 2023-01-28 16:57 | NUR ---
DAYSHIFT SUMMARY Patient appears very tired today, awake/alert at times, but will go back to sleep. Patient did not get OOB, but did participate in bed exercises with PT. Regan pulled yesterday, but unable to void. instructed RN to replace regan catheter. Regan patent draining to gravity. IV Unasyn administred. Vitals stable, will continue plan of care.
[2023-01-28 20:20] VITALS: BP 134/63
[2023-01-29 03:30] VITALS: BP 123/64
[2023-01-29 05:43] LABS: International Normalized Ratio 2.82; Prothrombin Time Results 27.9 Sec (9.7-11.5)
--- NOTE | 2023-01-29 06:24 | NUR ---
Shift Summary Lane in place draining to gravity. Pt awake for most of the night. Lift transfer from chair to bed. Pt only took 1 pill during med pass and refused others. AOx2, lethargic. No c/o pain, nausea or discomfort. On video monitor. On 4L O2 NC. VSS.
[2023-01-29 07:26] VITALS: BP 117/67
--- NOTE | 2023-01-29 13:49 | NUR ---
Pt working with therapy and son assisting when I arrived after paged by RN that son had arrived. After therapy session, which pt did participate in with great encouragement from son, I met with son to review AD and provide him with a copy I had obtained from PCP. Son would like to rescind the POLST done at and complete new one that is in agreement with her AD. Pt states he would like to focus on his mom's quality of life while providing any medical care that may benefit her and that she is willing to participate with. He is clear that his mom did not want prolongation of life if she were suffering or in any of the conditions listed in the advanced directive. New POLST completed in room, although pt was sleeping after therapy session. Sawyer is her appointed proxy per AD. Pt had cried out in pain with movement/therapy, transition from sitting to lying down. RN reports minimal short lived relief with tramadol and tylenol. All of above reported to Dr for her signature on new POLST and review of analgesics. Son feels if pain was better controlled pt would participate with therapy better and all in agreement with that thought. Thorough discussion of advanced care planning considerations had with son and Hard Choices for loving people booklet given to also share with his brother for ongoing conversation about pt's quality of life and medical decision making. New POLST states DNR and limited medical interventions with no intubation, feeding tube or dialysis desired. Bedside RN updated on all of the above. Dr to review medications and enter order for hydrocodone prn.
--- NOTE | 2023-01-29 13:58 | NUR ---
Pt's advanced directive faxed to Leeann PINZON/[facility]. Plan to fax new POLST once fully signed. Farshad informed that code status has changed and the POLST in their possession is no longer valid.
[2023-01-29 15:38] VITALS: BP 106/58
--- NOTE | 2023-01-29 16:02 | NUR ---
DAYSHIFT SUMMARY Patient OOB for breakfast, sat in chair all morning. C/o severe pain in her back. Pallilative care & patient/son changed POLST today. Patient worked with therpay today, ambulated to bed. Vitals stable. Possible DC to SNF tomorrow. Will continue plan of care.
[2023-01-29 19:57] VITALS: BP 102/69
[2023-01-30 03:26] VITALS: BP 119/59
--- NOTE | 2023-01-30 04:42 | NUR ---
SHIFT SUMMARY PATIENT HAD NO ACUTE CHANGES. AXOX 2, [place] RESERVATION, AND BEDREST. ON 1L O2 NC. PIV REMAINS INTACT. MORELOS PATENT AND DRAINING TO GRAVITY. TAKES MEDICATION WHOLE X ONE EACH WITH APPLESAUCE. DENIES CHEST PAIN, SOB, AND N/V. VSS/AFEBRILE. COOPERATIVE WITH CARE. CALL LIGHT IN REACH. BED IN LOWEST POSITION. WILL CONTINUE TO MONITOR UNTIL DAY SHIFT NURSE ASSUMES CARE.
[2023-01-30 05:03] LABS: International Normalized Ratio 2.52; Prothrombin Time Results 25.1 Sec (9.7-11.5)
[2023-01-30 05:51] LABS: Bun/Creatinine Ratio 15.6 (12.0-20.0); Calcium, Blood 8.6 mg/dL (8.5-10.1); Creatinine, Blood 0.77 mg/dL (0.40-1.00); Potassium, Blood 3.6 mmol/L (3.5-5.5)
[2023-01-30 07:21] VITALS: BP 130/63
[2023-01-30 12:54] LABS: SARS-Cov-2 (COVID-19) PCR, MMC NEGATIVE (NEGATIVE)
[2023-01-30] MEDS ORDERED: JUVEN PACKET1 EAC3 PO (14:25)
[2023-01-30] MEDS ORDERED: GUAI600T33 PO (14:26)
[2023-01-30] MEDS ORDERED: Norco 5-325 Ta1 EACH PO (14:26)
[2023-01-30] MEDS ORDERED: DOCU100 PO (14:26)
[2023-01-30] MEDS ORDERED: MIRALAX17 GM PO (14:27)
[2023-01-30] MEDS ORDERED: CEROVITE PO (14:27)
[2023-01-30] MEDS ORDERED: SENN187 PO (14:28)
[2023-01-30] MEDS ORDERED: LIQUACEL PO (14:28)
[2023-01-30] MEDS ORDERED: VISBIOME 112.51 EACH PO (14:28)
[2023-01-30] MEDS ORDERED: WARF2.5 PO (14:29)
--- NOTE | 2023-01-30 15:17 | NUR ---
DISCHARGE SUMMARY PT DISCHARGED TO [facility]. PT LEFT JUST PRIOR TO THIS NOTE VIA WHEELCHAIR WITH TRANSPORTER SERVICE WITH SON PRESENT. JUST PRIOR TO DISCHARGE, PT'S SON MADE THIS NURSE AWARE THAT PATIENT HAD NOT HAD A BM THIS HOSPITALIZATION. SINCE [facility]ANSPRORT WAS ALREADY HERE TO TAKE PT TO REHAB, ROUNDHOUSE FIRER/FIREMAN CALLED [facility] TO MAKE SURE THEY WOULD BE WILLING TO CONTINUE BOWEL CARE UPON RECEIVING PATIENT. ALLEN STATED THAT WE COULD PROCEED WITH DC. THIS NURSE CALLED AND GAVE REPORT TO MARVIN PRIOR TO THIS NOTE. MORELOS PATENT AND DRAINING UPON DISCHAGE. MORELOS PLACED 01/28 PER LAINA CHI RN WHO WAS PRESENT AT TIME OF PLACEMENT. MEPILEX ON COCCYX FOR PREVENTION. PT WAS ON ROOM AIR AT TIME OF DISCHARGE. O2 94-92% ON RA AND SHE WAS REFUSING NASAL CANNULA.
== END 2023-01-30 14:47 | DRG 871 ==
LOC: ER 17:14 → MEDS 21:20 → PCU 21:20 → MEDS 01-23 13:42
PROVIDERS: Emergency Medicine; Family Medicine; Internal Medicine; ADMIT Internal Medicine
PROC: 3E03329 Introduction of Other Anti-infective into Peripheral Vein, Percutaneous Approach (ICD-10-PCS; 2023-01-22)
PROC: 0T9B70Z Drainage of Bladder with Drainage Device, Via Natural or Artificial Opening (ICD-10-PCS; principal; 2023-01-30)
DX: A41.9 Sepsis, unspecified organism (principal); J69.0 Pneumonitis due to inhalation of food and vomit; J96.01 Acute respiratory failure with hypoxia; S22.41XA Multiple fractures of ribs, right side, initial encounter for closed fracture; J98.11 Atelectasis; J44.0 Chronic obstructive pulmonary disease with (acute) lower respiratory infection; D68.9 Coagulation defect, unspecified; Z51.5 Encounter for palliative care; M16.11 Unilateral primary osteoarthritis, right hip; R33.9 Retention of urine, unspecified; G62.9 Polyneuropathy, unspecified; R82.81 Pyuria; R13.12 Dysphagia, oropharyngeal phase; Z85.118 Personal history of other malignant neoplasm of bronchus and lung; W19.XXXA Unspecified fall, initial encounter; R82.90 Unspecified abnormal findings in urine; Z91.81 History of falling; Z88.2 Allergy status to sulfonamides; Z79.2 Long term (current) use of antibiotics; Z86.711 Personal history of pulmonary embolism; Z90.710 Acquired absence of both cervix and uterus; Z79.01 Long term (current) use of anticoagulants; Z79.899 Other long term (current) drug therapy
CPT/HCPCS: 36415; 71045; 71046; 72192; 80048; 80053; 81001; 82947; 83036; 83605; 83735; 83880; 84145; 85025; 85027; 85520; 85610; 85730; 87040; 87086; 92523; 92526; 92610; 93005; 93010; 94640; 94664; 94760; 94762; 96365; 97110; 97110-CQ; 97162; 97166; 97530; 99285-25; A9270; J0295; J0696; J1885; J1940; J2405; J3480; J7030; J7050; J7120; U0002

== ENCOUNTER → 2023-03-20 | Outpatient (CLI) | payer MEDICARE, OTHER ==
[~2023-03-20] MED LIST changes: +CEROVITE PO; +GUAI600T33 PO; +JUVEN PACKET1 EAC3 PO; +LIQUACEL PO; +MIRALAX17 GM PO; +Norco 5-325 Ta1 EACH PO; +SENN187 PO; +VISBIOME 112.51 EACH PO; +WARF2.5 PO
[2023-03-20 19:09] LABS: Appearance, Urine Turbid (Clear); Bilirubin, Urine Neg (Neg); Blood, Urine 5+ (Neg); Color, Urine Yellow (P-Yellow); Glucose Qualitative, Urine Neg (Neg); Ketones, Urine Neg (Neg); Leukocyte Esterase, Urine 3+ (Neg); Nitrite, Urine Pos (Neg); Protein, Urine 3+ (Neg); Specific Gravity, Urine 1.025 (1.003-1.022); Urobilinogen, Urine NORM (Normal)
[2023-03-20 19:47] LABS: Bacteria Many /hpf; Red Blood Cells, Urine TNTC /hpf (0-2); Squamous Epithelial Cells Few /hpf (Few); White Blood Cells, Urine TNTC /hpf (0-5)
[2023-03-20 19:48] LABS: Calcium Oxalate Crystals Few /hpf
== END | disposition home or self-care (01) ==
LOC: LAB 17:50 → LAB SHORT 17:50
PROVIDERS: Internal Medicine
DX: N39.0 Urinary tract infection, site not specified (principal)
CPT/HCPCS: 81001; 87077; 87086; 87186

== ENCOUNTER → 2023-09-19 | Outpatient (CLI) | payer MEDICARE, OTHER | END | disposition home or self-care (01) | LOC: LAB SHORT 12:03 → LAB 12:03 | DX: N39.0 Urinary tract infection, site not specified (principal) | CPT/HCPCS: 87086 ==

== ENCOUNTER 2023-11-22 08:33 | Emergency (ER) | payer MEDICARE, OTHER ==
[~2023-11-22] VITALS: Ht 165.1 cm; Wt 65.8 kg
[2023-11-22 08:39] VITALS: BP 110/89
== END 2023-11-22 10:04 | disposition home or self-care (01) ==
LOC: ER 08:33
DX: S00.03XA Contusion of scalp, initial encounter (principal); W05.0XXA Fall from non-moving wheelchair, initial encounter; Z88.2 Allergy status to sulfonamides; Z91.011 Allergy to milk products; Z86.711 Personal history of pulmonary embolism; Z79.01 Long term (current) use of anticoagulants; Z79.899 Other long term (current) drug therapy
CPT/HCPCS: 70450; 99284-25

== ENCOUNTER → 2024-01-05 | Outpatient (CLI) | payer MEDICARE, OTHER | LOC: LAB SHORT 16:14 → LAB 16:14 | DX: N39.0 Urinary tract infection, site not specified (principal) | CPT/HCPCS: 87077; 87086; 87186 ==

== ENCOUNTER 2024-01-24 11:18 | Inpatient (IN) | payer MEDICARE ==
[~2024-01-24] VITALS: Ht 175.3 cm; Wt 73.2 kg
[2024-01-24 11:51] LABS: Base Excess Venous 0.6 mmol/L; Bicarbonate Venous 24.1 mmol/L (24.0-30.0); PCO2 Venous 49.1 mmHg (38-42); pH Blood Venous 7.34 (7.34-7.37)
[2024-01-24] MEDS ORDERED: NS 1,000 ML IV SCH (12:20)
[2024-01-24 12:21] LABS: BASOPHILS ABSOLUTE AUTO 0.05 K/mm3 (0.00-0.23); BASOPHILS PERCENT AUTO 0 % (0-2); EOSINOPHILS ABSOLUTE AUTO 0.02 K/mm3 (0.00-0.68); EOSINOPHILS PERCENT AUTO 0 % (0-6); Hematocrit 39.9 % (33.0-51.0); Hemoglobin 12.7 g/dL (11.5-16.0); IMMATURE GRAN ABSOLUTE AUTO 0.09 K/mm3 (0.00-0.10); IMMATURE GRAN PERCENT AUTO 1 % (0-1); LYMPHOCYTES ABSOLUTE AUTO 0.51 K/mm3 (0.84-5.20); LYMPHOCYTES PERCENT AUTO 4 % (21-46); MONOCYTES ABSOLUTE AUTO 1.73 K/mm3 (0.16-1.47); MONOCYTES PERCENT AUTO 13 % (4-13); Mean Corpuscular HGB 29.9 pg (26.0-34.0); Mean Corpuscular HGB Conc 31.8 g/dL (31.5-36.5); Mean Corpuscular Volume 94 fL (80-100); Mean Platelet Volume 8.7 fL (9.1-12.4); NEUTROPHILS ABSOLUTE AUTO 11.24 K/mm3 (1.96-9.15); NEUTROPHILS PERCENT AUTO 82 % (41-73); Platelet Count 206 K/mm3 (150-400); RDW Coefficient Variation 12.9 % (11.7-14.2); RDW Standard Deviation 44.4 fL (35.1-46.3); Red Blood Cell Count 4.25 M/mm3 (3.80-5.20); White Blood Cell Count 13.64 K/mm3 (4.00-11.30)
[2024-01-24 12:39] LABS: Albumin/Globulin Ratio 0.8 (0.8-1.8); Bilirubin, Total 0.4 mg/dL (0.1-1.0); Bun/Creatinine Ratio 21.7 (12.0-20.0); Calcium, Blood 8.1 mg/dL (8.5-10.1); Creatinine, Blood 0.78 mg/dL (0.40-1.00); Globulin, Blood 3.9 g/dL (2.2-4.0); Magnesium, Blood 1.8 mg/dL (1.6-2.4); Potassium, Blood 3.8 mmol/L (3.5-5.5); Total Protein, Blood 6.9 g/dL (6.4-8.2)
[2024-01-24] MEDS ORDERED: Piperacillin/Tazobactam Sod 4.5 GM in NS 100 ML IV ONE (13:00)
[2024-01-24] MEDS ORDERED: MethylPREDNISolone Sod Succ 125 MG Vial IV ONE (13:10)
[2024-01-24] MEDS ORDERED: Albuterol 2.5 MG/3 ML VIAL INH SCH (13:10)
[2024-01-24] MEDS ORDERED: Albuterol 2.5 MG/3 ML VIAL INH PRN (14:00)
[2024-01-24] MEDS ORDERED: Tiotropium Bromide 2.5 MCG/ACT MIST INHAL (10 ACT/4 GM) INH SCH (14:00)
[2024-01-24] MEDS ORDERED: Ipratropium/Albuterol SulF 2.5-0.5MG/3 ML Amp INH PRN (14:00)
[2024-01-24] MEDS ORDERED: Remdesivir (EUA) 200 MG in NS 250 ML IV ONE (14:05)
[2024-01-24 19:42] LABS: Source, Urine Straight Cath
[2024-01-24 19:51] LABS: Bilirubin, Urine Neg (Neg); Blood, Urine 4+ (Neg); Glucose Qualitative, Urine Neg (Neg); Ketones, Urine 1+ (Neg); Leukocyte Esterase, Urine 1+ (Neg); Nitrite, Urine Neg (Neg); Protein, Urine 2+ (Neg); Urobilinogen, Urine NORM (Normal)
[2024-01-24 20:05] LABS: Appearance, Urine Cloudy (Clear); Color, Urine Yellow (P-Yellow)
[2024-01-24 20:07] LABS: Amorphous Heavy (0-Heavy); Bacteria Few /hpf; Squamous Epithelial Cells Not Seen /hpf (Few)
[2024-01-24 20:51] VITALS: BP 103/65
[2024-01-24] MEDS ORDERED: TIOT18 INH (21:20)
[2024-01-24] MEDS ORDERED: XARELTO20 MG PO (21:21)
[2024-01-24] MEDS ORDERED: SENN187 PO (21:22)
[2024-01-24] MEDS ORDERED: BISA10S PR (21:23)
[2024-01-24 23:09] VITALS: BP 105/57
[2024-01-25] VITALS (8 sets, daily range): BP systolic 84–127; BP diastolic 51–68
[2024-01-25] MEDS ORDERED: Piperacillin/Tazobactam Sod 4.5 GM in NS 100 ML IV SCH
--- NOTE | 2024-01-25 00:28 | NUR ---
PT LETHARGIC AND RESPONDS TO VERBAL STIMULI. SHE IS VERY WEAK AND HAS BEEN FOR SEVERAL DAYS. WHEN PT ARRIVED TO UNIT HER SON WAS WITH HER, AND PT WAS ABLE TO WAKE UP AND SPEAK WITH US FOR A BIT. SHE IS ON 5L NC AND MAINTAINING 02 SATURATION ABOVE 90%. HR SR 70'S, SHE DENIES CHEST PAIN/PRESSURE AND BP STABLE. PT HAS CHRONIC CATHETER THAT WAS CHANGED IN ED. YELLOW URINE DRAINING WITH GRAVITY. PT ARRIVED TO HOSPITAL COVID POSITIVE, SHE LIVES IN FACILITY AND WAS TESTED YESTERDAY HER SON SAID. PT'S SON ALSO SAID THAT PT HAD A UTI A COUPLE WEEKS AGO AND HE THINKS IT DIDN'T COMPLETELY GO AWAY. PT'S BASELINE IS WHEELCHAIR. PT HAS BEEN SLEEPING IN ROOM SINCE HER SON LEFT WITH UNLABORED AND SYMMETRICAL BREATHING. Q2 TURNS. CALL LIGHT WITHIN REACH.
[2024-01-25] MEDS ORDERED: NS 1,000 ML IV SCH ×2 (01:45→05:00)
[2024-01-25 04:17] LABS: BASOPHILS ABSOLUTE AUTO 0.02 K/mm3 (0.00-0.23); BASOPHILS PERCENT AUTO 0 % (0-2); EOSINOPHILS PERCENT AUTO 0 % (0-6); Hematocrit 36.8 % (33.0-51.0); Hemoglobin 11.9 g/dL (11.5-16.0); IMMATURE GRAN ABSOLUTE AUTO 0.13 K/mm3 (0.00-0.10); IMMATURE GRAN PERCENT AUTO 1 % (0-1); LYMPHOCYTES ABSOLUTE AUTO 0.89 K/mm3 (0.84-5.20); LYMPHOCYTES PERCENT AUTO 5 % (21-46); MONOCYTES PERCENT AUTO 4 % (4-13); Mean Corpuscular HGB 30.1 pg (26.0-34.0); Mean Corpuscular HGB Conc 32.3 g/dL (31.5-36.5); Mean Corpuscular Volume 93 fL (80-100); Mean Platelet Volume 8.8 fL (9.1-12.4); NEUTROPHILS ABSOLUTE AUTO 16.53 K/mm3 (1.96-9.15); NEUTROPHILS PERCENT AUTO 90 % (41-73); Platelet Count 183 K/mm3 (150-400); RDW Standard Deviation 44.6 fL (35.1-46.3); Red Blood Cell Count 3.96 M/mm3 (3.80-5.20); White Blood Cell Count 18.37 K/mm3 (4.00-11.30)
[2024-01-25 04:41] LABS: Albumin, Blood 2.6 g/dL (3.4-5.0); Albumin/Globulin Ratio 0.6 (0.8-1.8); Bilirubin, Total 0.5 mg/dL (0.1-1.0); Bun/Creatinine Ratio 25.5 (12.0-20.0); Calcium, Blood 7.9 mg/dL (8.5-10.1); Creatinine, Blood 0.79 mg/dL (0.40-1.00); Total Protein, Blood 6.6 g/dL (6.4-8.2)
[2024-01-25] MEDS ORDERED: Pantoprazole Sodium 40 MG Injection IV SCH (06:00)
--- NOTE | 2024-01-25 06:48 | NUR ---
PT IS LESS LETHARGIC AND MORE TALKATIVE THAN SHE WAS AT BEGINNING OF SHIFT. STILL A&OX3-4. SOFT BP'S, MD AWARE, PT RECEIVING FIRST OF TWO LITERS OF NS. SPEECH EVAL PLACED PER MD, SON SAID PT IS RISK FOR ASPIRATION. MORELOS STILL DRAINING WITH GRAVITY. FLUIDS RUNNING PER EMAR. PT RESTING IN BED AND CALL LIGHT WITHIN REACH.
[2024-01-25] MEDS ORDERED: Dexamethasone Sodium Phosphate 4 MG/ML 1ML Vial IV SCH (09:00)
[2024-01-25] MEDS ORDERED: Rivaroxaban 10 MG Tab PO SCH (09:00)
[2024-01-25] MEDS ORDERED: Loratadine 10 MG Tab PO SCH (09:00)
[2024-01-25] MEDS ORDERED: Remdesivir (EUA) 100 MG in NS 250 ML IV SCH (12:00)
--- NOTE | 2024-01-25 18:28 | NUR ---
SHIFT SUMMARY PT ALERT, ORIENTED X2; CALM AND COOPERATIVE WITH CARE. PT RESTING IN BED. UP WITH 1 PERSON ASSIST. PT DENIES PAIN, CHEST PAIN/PRESSURE, NAUSEA, DIZZINESS AND NUMB/TINGLING. SPO2 >90% ON 5L O2 VIA NC, LUNGS COARSE T/O, MOIST PRODUCTIVE COUGH. ATTEMPTED BEDSIDE SWALLOW THIS AM, PT SOUNDED WET AFTER, REATTEMPTED THIS EVENING, PASSED, PT PROVIDED WITH TRAY. TELE SINUS 60-70'S, BP SOFT BUT STABLE. ABD MILD DISTENDED, SOFT, NONTENDER. CHRONIC MORELOS CATHETER IN PLACE, PATENT AND DRAINING. OTHER VSS. NO OTHER ACUTE CHANGES NOTED. WILL CONTINUE TO MONITOR.
[2024-01-26 03:26] LABS: Base Excess Venous -3.5 mmol/L; Bicarbonate Venous 21.8 mmol/L (24.0-30.0); PCO2 Venous 35.8 mmHg (38-42); pH Blood Venous 7.39 (7.34-7.37)
[2024-01-26 03:46] LABS: BASOPHILS ABSOLUTE AUTO 0.01 K/mm3 (0.00-0.23); BASOPHILS PERCENT AUTO 0 % (0-2); EOSINOPHILS PERCENT AUTO 0 % (0-6); Hematocrit 35.9 % (33.0-51.0); Hemoglobin 11.7 g/dL (11.5-16.0); IMMATURE GRAN ABSOLUTE AUTO 0.09 K/mm3 (0.00-0.10); IMMATURE GRAN PERCENT AUTO 1 % (0-1); LYMPHOCYTES ABSOLUTE AUTO 1.12 K/mm3 (0.84-5.20); LYMPHOCYTES PERCENT AUTO 6 % (21-46); MONOCYTES ABSOLUTE AUTO 1.34 K/mm3 (0.16-1.47); MONOCYTES PERCENT AUTO 7 % (4-13); Mean Corpuscular HGB 30.4 pg (26.0-34.0); Mean Corpuscular HGB Conc 32.6 g/dL (31.5-36.5); Mean Corpuscular Volume 93 fL (80-100); Mean Platelet Volume 9.4 fL (9.1-12.4); NEUTROPHILS PERCENT AUTO 86 % (41-73); Platelet Count 186 K/mm3 (150-400); RDW Coefficient Variation 13.1 % (11.7-14.2); RDW Standard Deviation 44.8 fL (35.1-46.3); Red Blood Cell Count 3.85 M/mm3 (3.80-5.20); White Blood Cell Count 18.66 K/mm3 (4.00-11.30)
[2024-01-26 04:10] LABS: Albumin, Blood 2.5 g/dL (3.4-5.0); Albumin/Globulin Ratio 0.7 (0.8-1.8); Bilirubin, Total 0.5 mg/dL (0.1-1.0); Bun/Creatinine Ratio 31.6 (12.0-20.0); Calcium, Blood 7.8 mg/dL (8.5-10.1); Creatinine, Blood 0.79 mg/dL (0.40-1.00); Globulin, Blood 3.8 g/dL (2.2-4.0); Potassium, Blood 3.8 mmol/L (3.5-5.5); Total Protein, Blood 6.3 g/dL (6.4-8.2)
[2024-01-26 04:18] VITALS: BP 110/69
--- NOTE | 2024-01-26 06:36 | NUR ---
PATIENT A&O 3-4. BP WAS IMPROVED WITH FLUIDS, SBP 110-120S. RESP PATIENT STILL ON 5L NC. PATIENT DOES DESAT WHEN SHE HAS A LONG COUGHING EPSIODE. RAN A VBG THIS AM DUE TO PATIENT SAT DROPPING TO 60S DURING A COUGH EPISODE. RESULTS WERE UNREMARKABLE. CARDAIC PATIENT IN NSR. MORELOS IN PLACE DRAINING TO GRAVITY. NO BM OVERNIGHT.
[2024-01-26 07:33] VITALS: BP 112/86
[2024-01-26 15:06] VITALS: BP 132/72
--- NOTE | 2024-01-26 18:43 | NUR ---
SHIFT SUMMARY PT ALERT, ABLE TO MAKE NEEDS KNOWN. FORGETFUL. NOT IMPULSIVE. SP02>92% ON 2L NC, TITRATED FROM 5L THIS AM. TELEMETRY SHOWS NSR, HR HIGH 50'S-80'S. VSS. PT DENIES PAIN. UP TO CHAIR 1P ASSIST W/ FWW THIS AM FOR BREAKFAST. SPEECH EVAL THIS SHIFT, SEE RECOMMENDATIONS. ABX INFUSING PER EMAR. REMDESIVR PER EMAR. PT RESTING IN BED. Q2H REPOSITIONING. CHRONIC MORELOS CATHETER DRAINING YELLOW URINE TO GRAVITY. SON IN ROOM THIS EVENING. SON WOULD LIKE PROVIDER TO CALL IN AM TO GIVE UPDATE. REPORT GIVEN TO MEDICAL ONSITE CASE MANAGER. PT TO BE TRANSFERRED TO ROOM 345.
[2024-01-26 19:52] VITALS: BP 117/66
[2024-01-26] MEDS ORDERED: NS 250 ML IV PRN (22:50)
[2024-01-27] MEDS ORDERED: Piperacillin/Tazobactam Sod 4.5 GM in NS 100 ML IV SCH
[2024-01-27 05:30] VITALS: BP 119/64
[2024-01-27 05:40] LABS: BASOPHILS ABSOLUTE AUTO 0.01 K/mm3 (0.00-0.23); BASOPHILS PERCENT AUTO 0 % (0-2); EOSINOPHILS PERCENT AUTO 0 % (0-6); Hematocrit 35.8 % (33.0-51.0); Hemoglobin 11.5 g/dL (11.5-16.0); IMMATURE GRAN PERCENT AUTO 1 % (0-1); LYMPHOCYTES ABSOLUTE AUTO 1.34 K/mm3 (0.84-5.20); LYMPHOCYTES PERCENT AUTO 10 % (21-46); MONOCYTES ABSOLUTE AUTO 1.08 K/mm3 (0.16-1.47); MONOCYTES PERCENT AUTO 8 % (4-13); Mean Corpuscular HGB 29.7 pg (26.0-34.0); Mean Corpuscular HGB Conc 32.1 g/dL (31.5-36.5); Mean Corpuscular Volume 93 fL (80-100); Mean Platelet Volume 9.3 fL (9.1-12.4); NEUTROPHILS ABSOLUTE AUTO 11.04 K/mm3 (1.96-9.15); NEUTROPHILS PERCENT AUTO 81 % (41-73); Platelet Count 174 K/mm3 (150-400); RDW Coefficient Variation 13.2 % (11.7-14.2); RDW Standard Deviation 44.5 fL (35.1-46.3); Red Blood Cell Count 3.87 M/mm3 (3.80-5.20); White Blood Cell Count 13.57 K/mm3 (4.00-11.30)
[2024-01-27 06:07] LABS: Albumin, Blood 2.5 g/dL (3.4-5.0); Albumin/Globulin Ratio 0.7 (0.8-1.8); Bilirubin, Total 0.6 mg/dL (0.1-1.0); Bun/Creatinine Ratio 32.6 (12.0-20.0); Calcium, Blood 7.8 mg/dL (8.5-10.1); Creatinine, Blood 0.74 mg/dL (0.40-1.00); Globulin, Blood 3.7 g/dL (2.2-4.0); Potassium, Blood 3.2 mmol/L (3.5-5.5); Total Protein, Blood 6.2 g/dL (6.4-8.2)
--- NOTE | 2024-01-27 06:33 | NUR ---
SHIFT SUMMARY PT IS A&OX3, OFF ON DATE, AND FORGETFUL AT TIMES. VSS ON 2-3L NC. DENIES PAIN. AWAKE MOST OF NOC. ANXIOUS AND WANTS TO GO HOME. TOLERATING A SOFT AND BITE SIZE DIET, WITH THICKENED FLUIDS. TAKES HER PILLS WHOLE IN APPLESAUCE. MORELOS CATHETER DRAINING ADEQUATE AMOUNTS OF YELLOW URINE TO GRAVITY. NO BM THIS SHIFT, BRIEF IN PLACE. NOOB THIS SHIFT, REPOSITIONED Q2 TOLERATED. ENHANCED PRECAUTIONS MAINTAINED FOR COVID. BED IN LOWEST POSITION, CALL LIGHT WITHIN. BED ALARM SET FOR PT'S SAFETY.
[2024-01-27] MEDS ORDERED: Potassium Chloride 20 MEQ TabCR PO ONE ×2 (08:00→11:35)
[2024-01-27 08:22] VITALS: BP 126/67
[2024-01-27] MEDS ORDERED: Rivaroxaban 10 MG Tab PO SCH (09:00)
[2024-01-27 16:16] VITALS: BP 119/67
[2024-01-27] MEDS ORDERED: Melatonin 5 MG Tablet PO PRN (17:05)
--- NOTE | 2024-01-27 17:56 | NUR ---
PATIENT ALERT AND ORIENTED TIMES THREE, INTERMITTENT CONFUSION, CRACKLES IN LOWER LOBES 3 LITERS OF OXYGEN SPO2 93-95, THICK MODERATE YELLOW SPUTUM WITH BROWN TINGE, TELEMETRY NSR 60'S-65'S. VSS, IV PLACEMENT LEFT FOREARM BY WRIST, 20 GAUGE. TOLERATING ANITBOITICS AND ANTIVIRALS WELL. PATIENT IS IMPROVING.
[2024-01-27 19:16] VITALS: BP 115/60
[2024-01-27] MEDS ORDERED: Docusate Sodium 100 MG Cap PO SCH (21:00)
[2024-01-28] MEDS ORDERED: MethylPREDNISolone Sod Succ 40 MG VIAL IV SCH
[2024-01-28 04:37] VITALS: BP 127/52
[2024-01-28 05:57] LABS: BASOPHILS ABSOLUTE AUTO 0.01 K/mm3 (0.00-0.23); BASOPHILS PERCENT AUTO 0 % (0-2); EOSINOPHILS PERCENT AUTO 0 % (0-6); Hemoglobin 12.5 g/dL (11.5-16.0); IMMATURE GRAN ABSOLUTE AUTO 0.09 K/mm3 (0.00-0.10); IMMATURE GRAN PERCENT AUTO 1 % (0-1); LYMPHOCYTES ABSOLUTE AUTO 0.91 K/mm3 (0.84-5.20); LYMPHOCYTES PERCENT AUTO 9 % (21-46); MONOCYTES PERCENT AUTO 3 % (4-13); Mean Corpuscular HGB Conc 32.9 g/dL (31.5-36.5); Mean Corpuscular Volume 91 fL (80-100); Mean Platelet Volume 9.4 fL (9.1-12.4); NEUTROPHILS ABSOLUTE AUTO 8.98 K/mm3 (1.96-9.15); NEUTROPHILS PERCENT AUTO 87 % (41-73); Platelet Count 172 K/mm3 (150-400); RDW Coefficient Variation 12.9 % (11.7-14.2); RDW Standard Deviation 43.1 fL (35.1-46.3); Red Blood Cell Count 4.17 M/mm3 (3.80-5.20); White Blood Cell Count 10.29 K/mm3 (4.00-11.30)
[2024-01-28 06:25] LABS: Albumin, Blood 2.5 g/dL (3.4-5.0); Albumin/Globulin Ratio 0.6 (0.8-1.8); Bilirubin, Total 0.7 mg/dL (0.1-1.0); Bun/Creatinine Ratio 27.9 (12.0-20.0); Calcium, Blood 7.9 mg/dL (8.5-10.1); Creatinine, Blood 0.75 mg/dL (0.40-1.00); Globulin, Blood 3.9 g/dL (2.2-4.0); Potassium, Blood 4.5 mmol/L (3.5-5.5); Total Protein, Blood 6.4 g/dL (6.4-8.2)
--- NOTE | 2024-01-28 06:39 | NUR ---
SHIFT SUMMARY PT IS A&OX3, OFF ON DATE, CONFUSED AND FORGETFUL AT TIMES. VSS ON 3L NC. PER TELEMETRY PT IS NSR 60-70'S. DENIES PAIN. DID NOT SLEEP WELL. MELATONIN GIVEN WITH LITTLE EFFECT. TOLERATING A SOFT AND BITE SIZE DIET, WITH THICKENED FLUIDS. TOOK HER PILLS WHOLE 1 AT A TIME WITH THICKENED H20. MORELOS CATHETER DRAINING ADEQUATE AMOUNTS OF YELLOW URINE TO GRAVITY. NO BM THIS SHIFT, BOWEL CARE GIVEN. BRIEF IN PLACE. X1 ASSIST WITH FWW, REPOSITIONED Q2 TOLERATED. ENHANCED PRECAUTIONS MAINTAINED FOR COVID. BED IN LOWEST POSITION, CALL LIGHT WITHIN. BED ALARM SET FOR PT'S SAFETY.
[2024-01-28 08:39] VITALS: BP 107/64
[2024-01-28] MEDS ORDERED: Polyethylene Glycol 3350 17 gm PO SCH (09:00)
[2024-01-28] MEDS ORDERED: Sennosides 8.6 MG Tab PO SCH (09:00)
[2024-01-28] MEDS ORDERED: Bisacodyl 5 MG TabEC PO PRN (10:30)
[2024-01-28] MEDS ORDERED: GuaiFENesin 600 MG TabCR PO SCH (10:30)
[2024-01-28] MEDS ORDERED: Acetaminophen 325 MG TABLET PO PRN (12:10)
[2024-01-28 15:38] VITALS: BP 134/71
--- NOTE | 2024-01-28 17:44 | NUR ---
SUMMARY- PT A/O X3. VERY SLEEPY AND STATES SHE FEELS EXHAUSTED AND JUST WANTS TO SLEEP. 2 STAFF PLUS GAIT BELT/WALKER FROM BED TO CHAIR, PT SAT UP FOR BREAKFAST ABOUT 2 HOURS. FED HERSELF A FEW BITES OF EGGS. DRINKS THICK LIQ SPARINGLY, STATES SHE HATES THICK LIQUIDS, RN/SEARCH ENGINE OPTIMIZATION MANAGER ENC FLUIDS ALL DAY BUT PT ONLY TAKES SMALL SIPS AND QUITS. SATS THIS AM 86% 3L/NC, INCREASED TO 4L/NC SATS CAME UP TO 95%. TIRES QUICK WITH ACTIVITY. LUNGS COARSE T.O, LACKS MOTIVATION TO COUGH AND WORK ON PULM TOILET, PT HAS A MOIST COUGH, OCC PRODUCTION. STARTED ON FLUTTER. ONLY USES WITH STAFF QUIING. RESP TX DID CPT THERAPY ONCE AROUND 1500 TODAY AND WORKED WITH FLUTTER. PT STARTED MUCINEX, ENCOURAGING HYDRATION. HAD REPEAT CXR, NO CHANGES FROM 01/23. PHYSICAL THERAPY CAME TO WORK WITH PT, SHE ONLY GOT TO SIDE OF BED AND STATED SHE WAS TOO EXHAUSETED TO GET UP, HEAD WAS SLUMPED AND EYES CLOSED. HELD OFF ON ACTIVITY. PT WAS ABLE TO GET A LONG NAP TODAY. MEDICATED THIS AM WITH TYLENOL FOR HEADACHE WHICH RESOLVED AFTER TX AND A NAP. SON CAME TO VISIT FOR AN HOUR THIS AFTERNOON. RN SPOKE TO HIM ABOUT PROGRESS. WILL REPORT TO NOC RN
[2024-01-28 19:41] VITALS: BP 99/57
[2024-01-29 04:27] VITALS: BP 132/67
--- NOTE | 2024-01-29 05:25 | NUR ---
SHIFT SUMMARY PT A&OX2-3 AND PLEASANT. DENIED PAIN WHEN ASKED. MAINTAINING O2 SATURATIONS ABOVE 95% ON 4L OF OXYGEN. LUNG SOUNDS COURSE AND WHEEZY. PT HAD TWO SHORT COUGHING EPISODES DURING THE NIGHT. ENCOURAGING FLUIDS AND MEDICATED PER EMAR. CONTINUING IV ABX. MORELOS DRAINING YELLOW URINE. REPOSITIONED NEEDED. BED IN LOWEST POSITION AND CALL LIGHT IN REACH.
[2024-01-29 06:16] LABS: BASOPHILS ABSOLUTE AUTO 0.01 K/mm3 (0.00-0.23); BASOPHILS PERCENT AUTO 0 % (0-2); EOSINOPHILS PERCENT AUTO 0 % (0-6); Hematocrit 37.8 % (33.0-51.0); Hemoglobin 12.2 g/dL (11.5-16.0); IMMATURE GRAN ABSOLUTE AUTO 0.06 K/mm3 (0.00-0.10); IMMATURE GRAN PERCENT AUTO 1 % (0-1); LYMPHOCYTES ABSOLUTE AUTO 0.91 K/mm3 (0.84-5.20); LYMPHOCYTES PERCENT AUTO 15 % (21-46); MONOCYTES PERCENT AUTO 5 % (4-13); Mean Corpuscular HGB 29.5 pg (26.0-34.0); Mean Corpuscular HGB Conc 32.3 g/dL (31.5-36.5); Mean Corpuscular Volume 91 fL (80-100); Mean Platelet Volume 9.3 fL (9.1-12.4); NEUTROPHILS ABSOLUTE AUTO 4.61 K/mm3 (1.96-9.15); NEUTROPHILS PERCENT AUTO 78 % (41-73); Platelet Count 187 K/mm3 (150-400); RDW Coefficient Variation 12.7 % (11.7-14.2); RDW Standard Deviation 42.6 fL (35.1-46.3); Red Blood Cell Count 4.14 M/mm3 (3.80-5.20); White Blood Cell Count 5.89 K/mm3 (4.00-11.30)
[2024-01-29 06:59] LABS: Albumin, Blood 2.4 g/dL (3.4-5.0); Albumin/Globulin Ratio 0.6 (0.8-1.8); Bilirubin, Total 0.7 mg/dL (0.1-1.0); Bun/Creatinine Ratio 33.6 (12.0-20.0); Calcium, Blood 8.1 mg/dL (8.5-10.1); Creatinine, Blood 0.69 mg/dL (0.40-1.00); Globulin, Blood 3.9 g/dL (2.2-4.0); Potassium, Blood 3.8 mmol/L (3.5-5.5); Total Protein, Blood 6.3 g/dL (6.4-8.2)
[2024-01-29 08:15] VITALS: BP 128/62
[2024-01-29] MEDS ORDERED: Fluticasone 0.05% Nasal Spray SCH (09:00)
[2024-01-29] MEDS ORDERED: Miconazole Nitrate 2% 85 GM PWD TOP SCH (14:15)
--- NOTE | 2024-01-29 16:21 | NUR ---
SUMMARY- PT A/O X3, VERY [place]. FEELS TIRED TODAY BUT LESS EXHAUSTED THAN YESTERDAY. LUNGS SOUND LESS MOIST, PT STATES SHE COUGHED UP A FEW BIG BLOBS OF PHLEGM THAT HAD OLD BLOOD IN THEM. OXYGEN FROM 3L DOWN TO 2L AT 1400, SATS 94-96%. HR 50'S. PT HAD LAXATIVE TODAY AND AN XXLG FORMED BROWN BM ON BSC. PT TAKES IN VERY LITTLE PO FLUIDS. MIN APPETITE, ABOUT 10% OF MEALS. ENCOURAGING LEMON PROTIEN SUPP GEL THAT COMES WITH EACH TRAY. PT TURNED Q2 WHILE IN BED. MORELOS CATH CARE AND CALAZYME TO RED SOO AREA, MICONAZOLE ADDED FOR SUSSPECTED YEAST. SON IN TO VISIT THIS AFTERNOON.
[2024-01-29 16:36] VITALS: BP 109/63
[2024-01-29 19:43] VITALS: BP 99/57
[2024-01-29] MEDS ORDERED: MULVITA PO (22:14)
[2024-01-29] MEDS ORDERED: AMOCLA500 PO (22:16)
[2024-01-29] MEDS ORDERED: Diflucan150 MG PO (22:18)
[2024-01-29] MEDS ORDERED: ALMACONE SUSPE355 ML PO (22:18)
[2024-01-29] MEDS ORDERED: LOPERAMIDE1 MG/7.10 PO (22:19)
[2024-01-29] MEDS ORDERED: LOPE2C PO (22:19)
[2024-01-29] MEDS ORDERED: DULCOLAX400 MG/5 M PO (22:20)
[2024-01-30 05:46] VITALS: BP 116/58
--- NOTE | 2024-01-30 06:01 | NUR ---
RENT CONTROL OFFICE MANAGER PATIENT IS A&OX4, VITAL STABLE, ON 3L NC. PATIENT IS SATTING BETWEEN 92-95% ON CONTINUOUS PULSE MONITOR. PATIENT GETS UP WITH ONE TO TWO ASSIST AND IS WEAK. PATIENT HAS IN A MORELOS CATH, DID NOT VOID LAST NIGHT, ONLY DRINK HALF OF HER THICKEN LIQUID THROUGHOUT THE SHIFT.
[2024-01-30 06:28] LABS: BASOPHILS ABSOLUTE AUTO 0.01 K/mm3 (0.00-0.23); BASOPHILS PERCENT AUTO 0 % (0-2); EOSINOPHILS PERCENT AUTO 0 % (0-6); Hematocrit 36.6 % (33.0-51.0); Hemoglobin 12.2 g/dL (11.5-16.0); IMMATURE GRAN ABSOLUTE AUTO 0.11 K/mm3 (0.00-0.10); IMMATURE GRAN PERCENT AUTO 2 % (0-1); LYMPHOCYTES ABSOLUTE AUTO 0.92 K/mm3 (0.84-5.20); LYMPHOCYTES PERCENT AUTO 13 % (21-46); MONOCYTES ABSOLUTE AUTO 0.43 K/mm3 (0.16-1.47); MONOCYTES PERCENT AUTO 6 % (4-13); Mean Corpuscular HGB 30.3 pg (26.0-34.0); Mean Corpuscular HGB Conc 33.3 g/dL (31.5-36.5); Mean Corpuscular Volume 91 fL (80-100); Mean Platelet Volume 9.4 fL (9.1-12.4); NEUTROPHILS ABSOLUTE AUTO 5.65 K/mm3 (1.96-9.15); NEUTROPHILS PERCENT AUTO 80 % (41-73); Platelet Count 217 K/mm3 (150-400); RDW Coefficient Variation 12.8 % (11.7-14.2); RDW Standard Deviation 42.5 fL (35.1-46.3); Red Blood Cell Count 4.02 M/mm3 (3.80-5.20); White Blood Cell Count 7.12 K/mm3 (4.00-11.30)
[2024-01-30 06:52] LABS: Albumin, Blood 2.2 g/dL (3.4-5.0); Albumin/Globulin Ratio 0.6 (0.8-1.8); Bilirubin, Total 0.6 mg/dL (0.1-1.0); Bun/Creatinine Ratio 37.6 (12.0-20.0); Calcium, Blood 7.7 mg/dL (8.5-10.1); Creatinine, Blood 0.72 mg/dL (0.40-1.00); Globulin, Blood 3.7 g/dL (2.2-4.0); Potassium, Blood 3.6 mmol/L (3.5-5.5); Total Protein, Blood 5.9 g/dL (6.4-8.2)
[2024-01-30 07:49] VITALS: BP 107/65
[2024-01-30] MEDS ORDERED: Rivaroxaban 10 MG Tab PO SCH (09:00)
[2024-01-30 14:47] VITALS: BP 122/64
--- NOTE | 2024-01-30 17:31 | NUR ---
GOALS OF CARE CONVERSATION WITH PT'S SON/POA RCV'D CALL FROM BEDSIDE RN D/T PT'S RESISTANCE TO PARTICIPATE IN CARES AND MINIMAL RESPONSE FROM PT. SPEECH THERAPY REPORTS PT WAS DIFFICULT TO WAKE AND DID NOT PARTICIPATE WITH TX. BEDSIDE RN REPORTS PT HAS POOR ORAL INTAKE AND HAS BEEN SLEEPING MAJORITY OF THE DAY. PT'S SON REPORTS PT DOES BETTER LATER IN THE DAY SHE DOESN'T SLEEP WELL AT NIGHT. WE REVIEWED VARIOUS STG OF DEMENTIA, PROVIDED BOOK "DEMENTIA ROAD MAP" FOR SON TO ASSESS WHERE HIS MOM FALLS ALONG HER JOURNEY. SON, SHANNON REPORTS A COMMUNICATION BREAKDOWN RE: PT'S CURRENT PROGNOSIS AND REHAB POTENTIAL. THIS PC RN REVIEWED SPEECH AND PT ASSESSMENTS WITH HIM. AT THIS TIME SHANNON WOULD LIKE TO CONTINUE WITH THE PLAN OF SNF ON DISCHARGE. DR. CHURCHILL'S NOTIFIED OF CURRENT GOAL. DR. WILSON IS AGREEABLE TO MEETING WITH SHANNON ON FRIDAY WHEN SHANNON COMES IN AND REVIEW HER PROGRESS FROM THE WEEKEND. GOAL OF CARE MEETING TO TAKE PLACE ON Friday02/02/24 @ 1100.
--- NOTE | 2024-01-30 18:15 | NUR ---
SHIFT SUMMARY PT SLEEPING AT START OF SHIFT AND DID NOT WANT TO BE WOKE UP FOR BREAKFAST. PT AWAKE LATER FOR AM MEDS AND BACK TO SLEEP AGAIN. PT DID NOT WANT TO WAKE UP FOR DR WILSON WHEN HE CAME IN TO SEE HER, REFUSING TO ANS QUESTIONS OR OPEN EYES. PT CONTINUED TO REFUSE HER MEALS AND ALL LIQUIDS. PALLIATIVE CARE NOTIFIED TO SEE PT AND CAME AND TALKED WITH SON. PT TO D/C TO ON FridayFebruary AFTER COVID PROTOCOL COMPLETION AND PENDING MEETING WITH PALLIATIVE CARE, DR WILSON, AND SON. PT GIVEN MEDS WHOLE IN APPLESAUCE; PT TOLERATED WELL. IV ABX GIVEN PER EMAR. PT'S SON NOW HERE TO TRY AND GET PT TO EAT OR DRINK SOMETHING. CALL LT IN REACH.
[2024-01-30 19:26] VITALS: BP 100/51
[2024-01-31 02:18] VITALS: BP 121/67
--- NOTE | 2024-01-31 05:09 | NUR ---
LABORER TIN CAN PATIENT IS A&OX3, VITALS ARE STABLE, ON 3L NC. PATIENT IS VERY WEAK AND LETHARGIC AND IS A 1-2 PERSON ASSIST. PATIENT IS AWARE TO CALL BEFORE GETTING OUT OF BED. CALL LIGHT IN REACH AND BED IS IN LOWER POSITION. PATIENT HAS A POOR APPETITE AND ONLY AGREED TO TAKE SMALL SIPS OF WATER WITH HER EVENING PILLS. PATIENT HAS A MORELOS CATHETER IN BUT IS NOT VOIDING DUE TO DECREASE FLUID INTAKE. MELATONIN WAS GIVEN PATIENT WITH HER EVENING PILLS. PATIENT WAS AWAKE FROM 1900 TO 2100 DURING THE SHIIFT AND. PATIENT STARTED SLEEPING AT 2145 AND SLEPT THROUGHOUT THE NIGHT UNTIL O500.
[2024-01-31 06:38] LABS: BASOPHILS ABSOLUTE AUTO 0.01 K/mm3 (0.00-0.23); BASOPHILS PERCENT AUTO 0 % (0-2); EOSINOPHILS PERCENT AUTO 0 % (0-6); Hematocrit 37.9 % (33.0-51.0); Hemoglobin 12.7 g/dL (11.5-16.0); IMMATURE GRAN ABSOLUTE AUTO 0.26 K/mm3 (0.00-0.10); IMMATURE GRAN PERCENT AUTO 4 % (0-1); LYMPHOCYTES ABSOLUTE AUTO 1.04 K/mm3 (0.84-5.20); LYMPHOCYTES PERCENT AUTO 16 % (21-46); MONOCYTES ABSOLUTE AUTO 0.49 K/mm3 (0.16-1.47); MONOCYTES PERCENT AUTO 8 % (4-13); Mean Corpuscular HGB 30.3 pg (26.0-34.0); Mean Corpuscular HGB Conc 33.5 g/dL (31.5-36.5); Mean Corpuscular Volume 91 fL (80-100); Mean Platelet Volume 9.1 fL (9.1-12.4); NEUTROPHILS ABSOLUTE AUTO 4.63 K/mm3 (1.96-9.15); NEUTROPHILS PERCENT AUTO 72 % (41-73); Platelet Count 237 K/mm3 (150-400); RDW Coefficient Variation 12.7 % (11.7-14.2); RDW Standard Deviation 41.9 fL (35.1-46.3); Red Blood Cell Count 4.19 M/mm3 (3.80-5.20); White Blood Cell Count 6.43 K/mm3 (4.00-11.30)
[2024-01-31 07:02] LABS: Albumin, Blood 2.2 g/dL (3.4-5.0); Albumin/Globulin Ratio 0.6 (0.8-1.8); Bilirubin, Total 0.5 mg/dL (0.1-1.0); Bun/Creatinine Ratio 35.9 (12.0-20.0); Calcium, Blood 7.8 mg/dL (8.5-10.1); Creatinine, Blood 0.7 mg/dL (0.40-1.00); Globulin, Blood 3.6 g/dL (2.2-4.0); Total Protein, Blood 5.8 g/dL (6.4-8.2)
[2024-01-31 07:46] VITALS: BP 117/68
[2024-01-31 15:34] VITALS: BP 97/52
--- NOTE | 2024-01-31 18:02 | NUR ---
SHIFT SUMMARY; PATIENT REMAINS ON ISO FOR COVID +. SHE IS AO X 3 TO 4 THORUGHOUT THE DAY. HER GRANDSON IS IN AND OUT DURING THE DAY AND HE ASSISTS IN HER CARE WHEN POSSIBLE. PATIENT HAS PLEASANT AFFECT AND IS COOPERATIVE WITH CARE. MORELOS IN PLACE FOR URINARY RETENTION. SHE IS TURNED AND MOVED UP IN BED Q 2 HOURS. PATIENT IS ENCOURAGED TO EAT AND FINISHES APPROX 80% OF HER MEALS TODAY. IV ANTIBIOTICS INFUSING ORDERED AND THEN IV IS SALINE LOCKED AND REMAINS PATENT. NO SKIN ISSUES ARER NOTED OTHER THAN RED GROIN AREA AND DISCOLORATION ON HER BOTTOM FROM BEING SEDENTARY. CARE IS MADE TO FLOAT HER HIPS THROUGNOUT THE DAY TO KEEP PRESSURE OFF HER BOTTOM. LUNG ARE DIM IN THRER BASES BUT CLEAR IN THE UPPER LOBES. VITAL SIGNS ARE WNL. NO ACUTE CHANGES IN CONDITION NOTED DURING DAY.
[2024-01-31 19:26] VITALS: BP 99/56
[2024-02-01 03:17] VITALS: BP 112/61
--- NOTE | 2024-02-01 05:09 | NUR ---
SALES PRODUCER PATIENT IS A&OX2, VITALS ARE STABLE ON 3L NC. PATIENRT IS VERY LETHARGIC DUE TO INSUFFICIENT FOOD AND FLUID INTAKE. PATIENT WAS ENCOURAGE TO DRINK BUT ONLY TOOK A SIP OF WATER WITH HER MEDS. PATIENT HAS A MORELOS CATHETER IN BUT ONLY HAS MININAL AMOUNT OF OUT PUT DUE TO HER REFUSING FLUID. PATIENT WAS GIVEN MELATONIN WITH HER EVENING PILLS AND SHE SLEPT ALL THROUGH THE NIGHT.
[2024-02-01 05:16] LABS: BASOPHILS ABSOLUTE AUTO 0.01 K/mm3 (0.00-0.23); BASOPHILS PERCENT AUTO 0 % (0-2); EOSINOPHILS PERCENT AUTO 0 % (0-6); Hematocrit 38.9 % (33.0-51.0); Hemoglobin 12.9 g/dL (11.5-16.0); IMMATURE GRAN ABSOLUTE AUTO 0.32 K/mm3 (0.00-0.10); IMMATURE GRAN PERCENT AUTO 5 % (0-1); LYMPHOCYTES ABSOLUTE AUTO 0.97 K/mm3 (0.84-5.20); LYMPHOCYTES PERCENT AUTO 14 % (21-46); MONOCYTES ABSOLUTE AUTO 0.46 K/mm3 (0.16-1.47); MONOCYTES PERCENT AUTO 7 % (4-13); Mean Corpuscular HGB 30.2 pg (26.0-34.0); Mean Corpuscular HGB Conc 33.2 g/dL (31.5-36.5); Mean Corpuscular Volume 91 fL (80-100); Mean Platelet Volume 9.1 fL (9.1-12.4); NEUTROPHILS ABSOLUTE AUTO 5.02 K/mm3 (1.96-9.15); NEUTROPHILS PERCENT AUTO 74 % (41-73); Platelet Count 232 K/mm3 (150-400); RDW Coefficient Variation 13.1 % (11.7-14.2); Red Blood Cell Count 4.27 M/mm3 (3.80-5.20); White Blood Cell Count 6.78 K/mm3 (4.00-11.30)
[2024-02-01 05:44] LABS: Albumin, Blood 2.3 g/dL (3.4-5.0); Albumin/Globulin Ratio 0.6 (0.8-1.8); Bilirubin, Total 0.6 mg/dL (0.1-1.0); Bun/Creatinine Ratio 35.3 (12.0-20.0); Calcium, Blood 8.3 mg/dL (8.5-10.1); Creatinine, Blood 0.77 mg/dL (0.40-1.00); Globulin, Blood 3.6 g/dL (2.2-4.0); Potassium, Blood 4.2 mmol/L (3.5-5.5); Total Protein, Blood 5.9 g/dL (6.4-8.2)
[2024-02-01 08:04] VITALS: BP 109/57
[2024-02-01 15:48] VITALS: BP 96/59
--- NOTE | 2024-02-01 16:08 | NUR ---
SHIFT SUMMARY; PATIENT HAD NO ACUTE CHANGES IN CONDITION NOTED. SHE WAS UP IN RECLINER AFTER LUNCH FOR AN HOUR. GRANDSON AT BEDSIDE MOST OF MORNING UNTIL AFTER NOON MEAL. HER VITAL SIGNS ARE STABLE AND NO AREA OF CONCERN IS NOTED. PER HE WANTS PATIENT TO MAKE AN EFFORT TO WORK WITH PT AND OT ON FRIDAY. HE WOULD LIKE HER TO GO TO REHAB TO GET STRONG ENOUGH TO GO HOME. PATIENT HAS INCREASE IN HER APPETITE AND EATS MOST OF HER MEALS TODAY WITH ENCOURAGEMENT. DENIES AY PAIN OR DISCOMFORT DURING DAY SHIFT. LUNGS HAVE RALES IN LEFT LUNG.
[2024-02-01 19:31] VITALS: BP 98/56
[2024-02-02 02:19] VITALS: BP 115/59
--- NOTE | 2024-02-02 04:17 | NUR ---
SHIFT SUMMARY PATIENT HAD VISIT WITH SON, WHO PLAYED GUITAR FOR HER. *SON EXPRESSED CONCERN THAT HER LUNGS ARE STILL NOT BETTER. *RALES APPEAR PRESENT IN LOWER LEFT LOBE. *PATIENT POLITE AND COOPERATIVE WITH STAFF TREATING HER. *IV ANTIBIOTICS INFUSED ORDERED. *REDISH PINKNESS SKIN ON RIGHT SIDE OF GROIN CREASE. *PATIENT APPEARED TO SLEEP THROUGH THE NIGHT. *IV COBAN WAS CHANGED AND PATIENT WAS TURNED. *O2 SATURATION BETWEEN 87 AND 93. *ON 3 LITERS OXYGEN. *PATIENT TURNED AND REPOSITIONED Q2 *CALL LIGHT PLACED WITHIN REACH AND BED IN LOW POSITION.
[2024-02-02 05:39] LABS: BASOPHILS ABSOLUTE AUTO 0.02 K/mm3 (0.00-0.23); BASOPHILS PERCENT AUTO 0 % (0-2); EOSINOPHILS ABSOLUTE AUTO 0.01 K/mm3 (0.00-0.68); EOSINOPHILS PERCENT AUTO 0 % (0-6); Hematocrit 40.1 % (33.0-51.0); Hemoglobin 13.2 g/dL (11.5-16.0); IMMATURE GRAN ABSOLUTE AUTO 0.47 K/mm3 (0.00-0.10); IMMATURE GRAN PERCENT AUTO 5 % (0-1); LYMPHOCYTES ABSOLUTE AUTO 1.09 K/mm3 (0.84-5.20); LYMPHOCYTES PERCENT AUTO 11 % (21-46); MONOCYTES ABSOLUTE AUTO 0.58 K/mm3 (0.16-1.47); MONOCYTES PERCENT AUTO 6 % (4-13); Mean Corpuscular HGB 29.7 pg (26.0-34.0); Mean Corpuscular HGB Conc 32.9 g/dL (31.5-36.5); Mean Corpuscular Volume 90 fL (80-100); NEUTROPHILS ABSOLUTE AUTO 7.65 K/mm3 (1.96-9.15); NEUTROPHILS PERCENT AUTO 78 % (41-73); Platelet Count 237 K/mm3 (150-400); RDW Coefficient Variation 13.1 % (11.7-14.2); RDW Standard Deviation 43.2 fL (35.1-46.3); Red Blood Cell Count 4.44 M/mm3 (3.80-5.20); White Blood Cell Count 9.82 K/mm3 (4.00-11.30)
[2024-02-02 06:13] LABS: Albumin, Blood 2.4 g/dL (3.4-5.0); Albumin/Globulin Ratio 0.6 (0.8-1.8); Bilirubin, Total 0.6 mg/dL (0.1-1.0); Bun/Creatinine Ratio 35.1 (12.0-20.0); Calcium, Blood 8.3 mg/dL (8.5-10.1); Creatinine, Blood 0.83 mg/dL (0.40-1.00); Globulin, Blood 3.8 g/dL (2.2-4.0); Potassium, Blood 4.1 mmol/L (3.5-5.5); Total Protein, Blood 6.2 g/dL (6.4-8.2)
[2024-02-02 07:26] VITALS: BP 103/63
--- NOTE | 2024-02-02 13:58 | NUR ---
DISCHARGE NOTE PT TRANSFERRED TO [facility], REPORT GIVEN TO KIT MENDOZA. PACKET PROVIDED TO TRANSPORT, OXYGEN PROVIDED FOR TRANSPORT. PERSONAL BELONGINGS GIVEN TO SON WHO WILL FOLLOW TRANSPORT TO THE FACILITY. IV REMOVED PRIOR TO DISCHARGE. MORELOS IN PLACE AND PATENT.
[2024-02-02] MEDS ORDERED: MELATONIN5 M1 PO (14:29)
[2024-02-02] MEDS ORDERED: PRED20 PO (14:30)
[2024-02-02] MEDS ORDERED: MICONAZOLE NITR85 GM TOP (14:31)
== END 2024-02-02 13:55 | DRG 177 ==
LOC: ER 11:18 → PCU 16:46 → MEDS 01-26 19:40
PROVIDERS: Emergency Medicine; Family Medicine; Internal Medicine; ADMIT Internal Medicine
PROC: XW033E5 Introduction of Remdesivir Anti-infective into Peripheral Vein, Percutaneous Approach, New Technology Group 5 (ICD-10-PCS; principal; 2024-01-25)
PROC: 3E0333Z Introduction of Anti-inflammatory into Peripheral Vein, Percutaneous Approach (ICD-10-PCS; 2024-01-25)
DX: U07.1 COVID-19 (principal); J12.82 Pneumonia due to coronavirus disease 2019; J96.01 Acute respiratory failure with hypoxia; S22.41XA Multiple fractures of ribs, right side, initial encounter for closed fracture; J44.0 Chronic obstructive pulmonary disease with (acute) lower respiratory infection; I48.0 Paroxysmal atrial fibrillation; F03.90 Unspecified dementia, unspecified severity, without behavioral disturbance, psychotic disturbance, mood disturbance, and anxiety; R33.9 Retention of urine, unspecified; K21.9 Gastro-esophageal reflux disease without esophagitis; G62.9 Polyneuropathy, unspecified; R13.10 Dysphagia, unspecified; E87.5 Hyperkalemia; Z85.820 Personal history of malignant melanoma of skin; Z85.118 Personal history of other malignant neoplasm of bronchus and lung; Z86.711 Personal history of pulmonary embolism; Z99.81 Dependence on supplemental oxygen; Z88.2 Allergy status to sulfonamides; Z88.8 Allergy status to other drugs, medicaments and biological substances; Z90.710 Acquired absence of both cervix and uterus; Z79.899 Other long term (current) drug therapy
CPT/HCPCS: 36415; 51702; 70450; 71045; 80053; 81001; 82803; 83605; 83735; 83880; 84145; 84484; 85025; 86140; 87040; 87086; 92526; 92610; 93005; 93010; 94640; 94664; 94667; 94760; 94762; 96365; 96367; 96375; 97110; 97162; 97530; 99285-25; A9270; C9113; J0248; J1100; J2543; J2919; J7030; J7050

== ENCOUNTER → 2024-02-13 | Outpatient (CLI) | payer MEDICARE ==
[~2024-02-13] MED LIST changes: +ALMACONE SUSPE355 ML PO; +AMOCLA500 PO; +BISA10S PR; +DULCOLAX400 MG/5 M PO; +Diflucan150 MG PO; +LOPE2C PO; +LOPERAMIDE1 MG/7.10 PO; +MELATONIN5 M1 PO; +MICONAZOLE NITR85 GM TOP; +MULVITA PO; +PRED20 PO; +TIOT18 INH; +XARELTO20 MG PO
[2024-02-13 15:19] LABS: Source, Urine Straight Cath
[2024-02-13 15:32] LABS: Appearance, Urine Cloudy (Clear); Bilirubin, Urine Neg (Neg); Blood, Urine 2+ (Neg); Color, Urine Yellow (P-Yellow); Glucose Qualitative, Urine Neg (Normal); Ketones, Urine 1+ (Neg); Leukocyte Esterase, Urine 2+ (Neg); Nitrite, Urine Pos (Neg); Protein, Urine 3+ (Neg); Specific Gravity, Urine 1.025 (1.003-1.022); Urobilinogen, Urine 1+ (Normal)
[2024-02-13 15:33] LABS: Bacteria Mod /hpf; Red Blood Cells, Urine 50-100 /hpf (0-2); Squamous Epithelial Cells Rare /hpf (Few); Yeast/Fungi Urine Few /hpf
[2024-02-13 15:34] LABS: Calcium Oxalate Crystals Few /hpf
== END | disposition home or self-care (01) ==
LOC: LAB 15:17 → LAB SHORT 15:17
PROVIDERS: Physician Assistant
DX: R31.9 Hematuria, unspecified (principal)
CPT/HCPCS: 81001; 87077; 87086; 87186

== ENCOUNTER → 2024-04-30 | Outpatient (CLI) | payer MEDICARE ==
[2024-04-30 15:40] LABS: BASOPHILS ABSOLUTE AUTO 0.07 K/mm3 (0.00-0.23); BASOPHILS PERCENT AUTO 2 % (0-2); EOSINOPHILS ABSOLUTE AUTO 0.15 K/mm3 (0.00-0.68); EOSINOPHILS PERCENT AUTO 3 % (0-6); Hematocrit 35.6 % (33.0-51.0); Hemoglobin 11.3 g/dL (11.5-16.0); IMMATURE GRAN ABSOLUTE AUTO 0.01 K/mm3 (0.00-0.10); IMMATURE GRAN PERCENT AUTO 0 % (0-1); LYMPHOCYTES ABSOLUTE AUTO 1.18 K/mm3 (0.84-5.20); LYMPHOCYTES PERCENT AUTO 25 % (21-46); MONOCYTES PERCENT AUTO 13 % (4-13); Mean Corpuscular HGB 30.7 pg (26.0-34.0); Mean Corpuscular HGB Conc 31.7 g/dL (31.5-36.5); Mean Corpuscular Volume 97 fL (80-100); Mean Platelet Volume 8.7 fL (9.1-12.4); NEUTROPHILS ABSOLUTE AUTO 2.69 K/mm3 (1.96-9.15); NEUTROPHILS PERCENT AUTO 57 % (41-73); Platelet Count 231 K/mm3 (150-400); RDW Coefficient Variation 14.2 % (11.7-14.2); RDW Standard Deviation 50.7 fL (35.1-46.3); Red Blood Cell Count 3.68 M/mm3 (3.80-5.20)
[2024-04-30 15:49] LABS: Albumin/Globulin Ratio 0.8 (0.8-1.8); Bilirubin, Total 0.2 mg/dL (0.1-1.0); Bun/Creatinine Ratio 13.5 (12.0-20.0); Calcium, Blood 8.9 mg/dL (8.5-10.1); Creatinine, Blood 0.89 mg/dL (0.40-1.00); Globulin, Blood 3.8 g/dL (2.2-4.0); Potassium, Blood 4.1 mmol/L (3.5-5.5); Total Protein, Blood 6.8 g/dL (6.4-8.2)
== END | disposition home or self-care (01) ==
LOC: LAB 15:35 → LAB SHORT 15:35
PROVIDERS: Emergency Medicine
DX: M79.89 Other specified soft tissue disorders (principal); Z86.711 Personal history of pulmonary embolism
CPT/HCPCS: 80053; 83880; 85025

== ENCOUNTER 2024-05-09 16:50 | Inpatient (IN) | payer MEDICARE, OTHER ==
[~2024-05-09] VITALS: Ht 162.6 cm; Wt 73.2 kg
[2024-05-09] MEDS ORDERED: Ondansetron HCl 2 MG / ML 2ML Vial IV ONE (17:30)
[2024-05-09 17:31] LABS: BASOPHILS PERCENT AUTO 2 % (0-2); EOSINOPHILS ABSOLUTE AUTO 0.17 K/mm3 (0.00-0.68); EOSINOPHILS PERCENT AUTO 3 % (0-6); Hematocrit 37.5 % (33.0-51.0); Hemoglobin 12.1 g/dL (11.5-16.0); IMMATURE GRAN ABSOLUTE AUTO 0.02 K/mm3 (0.00-0.10); IMMATURE GRAN PERCENT AUTO 0 % (0-1); LYMPHOCYTES ABSOLUTE AUTO 1.57 K/mm3 (0.84-5.20); LYMPHOCYTES PERCENT AUTO 28 % (21-46); MONOCYTES ABSOLUTE AUTO 0.75 K/mm3 (0.16-1.47); MONOCYTES PERCENT AUTO 13 % (4-13); Mean Corpuscular HGB 30.7 pg (26.0-34.0); Mean Corpuscular HGB Conc 32.3 g/dL (31.5-36.5); Mean Corpuscular Volume 95 fL (80-100); Mean Platelet Volume 8.6 fL (9.1-12.4); NEUTROPHILS PERCENT AUTO 54 % (41-73); Platelet Count 253 K/mm3 (150-400); RDW Coefficient Variation 13.8 % (11.7-14.2); RDW Standard Deviation 48.2 fL (35.1-46.3); Red Blood Cell Count 3.94 M/mm3 (3.80-5.20); White Blood Cell Count 5.71 K/mm3 (4.00-11.30)
[2024-05-09 17:50] LABS: Albumin, Blood 3.3 g/dL (3.4-5.0); Albumin/Globulin Ratio 0.8 (0.8-1.8); Bilirubin, Total 0.3 mg/dL (0.1-1.0); Bun/Creatinine Ratio 23.4 (12.0-20.0); Calcium, Blood 9.1 mg/dL (8.5-10.1); Creatinine, Blood 0.81 mg/dL (0.40-1.00); Globulin, Blood 4.1 g/dL (2.2-4.0); Total Protein, Blood 7.4 g/dL (6.4-8.2)
[2024-05-09 18:09] LABS: Free Thyroxine 0.75 ng/dL (0.70-1.60)
[2024-05-09 18:11] LABS: Thyroid Stimulating Hormone 2.04 uIU/mL (0.360-4.800)
[2024-05-09 18:45] LABS: International Normalized Ratio 1.19; Prothrombin Time Results 12.6 Sec (9.7-11.5)
[2024-05-09] MEDS ORDERED: LORazepam 2 MG/ML 1ML Injection IV ONE (20:45)
[2024-05-09] MEDS ORDERED: LORazepam 2 MG/ML 1ML Injection IV PRN (21:20)
[2024-05-09] MEDS ORDERED: FLU VACC TS2024-25(6MOS UP)/PF 45 MCG/0.5 ML SYRINGE IM SCH (21:20)
[2024-05-09] MEDS ORDERED: Tiotropium Bromide 2.5 MCG/ACT MIST INHAL (10 ACT/4 GM) INH SCH (21:25)
[2024-05-09] MEDS ORDERED: NS 1,000 ML IV SCH (21:25)
[2024-05-09] MEDS ORDERED: Albuterol 2.5 MG/3 ML VIAL INH PRN (21:25)
[2024-05-09] MEDS ORDERED: Ondansetron HCl 2 MG / ML 2ML Vial IV PRN (21:25)
[2024-05-09] MEDS ORDERED: Magnesium Sulf 2 GM/Water 50ML 50 ML IV ONE (21:30)
[2024-05-09 21:57] LABS: Source, Urine Clean Catch
[2024-05-09] MEDS ORDERED: Aspirin 300 MG Supp PR ONE (22:00)
[2024-05-09 22:06] LABS: Bilirubin, Urine Neg (Neg); Blood, Urine 5+ (Neg); Glucose Qualitative, Urine Neg (Neg); Ketones, Urine Neg (Neg); Leukocyte Esterase, Urine 2+ (Neg); Nitrite, Urine Neg (Neg); Protein, Urine 2+ (Neg); Urobilinogen, Urine NORM (Normal)
[2024-05-09 22:08] LABS: Appearance, Urine Hazy (Clear); Color, Urine Pale Yellow (P-Yellow)
[2024-05-09 22:11] LABS: Bacteria Many /hpf; Red Blood Cells, Urine TNTC /hpf (0-2); Squamous Epithelial Cells Few /hpf (Few)
[2024-05-09 23:26] VITALS: BP 121/80
[2024-05-10] VITALS (9 sets, daily range): BP systolic 112–137; BP diastolic 59–94
[2024-05-10 05:43] LABS: Hematocrit 35.6 % (33.0-51.0); Hemoglobin 11.6 g/dL (11.5-16.0); Mean Corpuscular HGB 30.9 pg (26.0-34.0); Mean Corpuscular HGB Conc 32.6 g/dL (31.5-36.5); Mean Corpuscular Volume 95 fL (80-100); Mean Platelet Volume 8.6 fL (9.1-12.4); Platelet Count 244 K/mm3 (150-400); RDW Coefficient Variation 13.7 % (11.7-14.2); Red Blood Cell Count 3.75 M/mm3 (3.80-5.20); White Blood Cell Count 10.55 K/mm3 (4.00-11.30)
[2024-05-10 05:57] LABS: International Normalized Ratio 1.03
[2024-05-10] MEDS ORDERED: Pantoprazole Sodium 40 MG Injection IV SCH (06:00)
[2024-05-10 06:21] LABS: Bun/Creatinine Ratio 18.3 (12.0-20.0); Calcium, Blood 8.6 mg/dL (8.5-10.1); Creatinine, Blood 0.82 mg/dL (0.40-1.00); Magnesium, Blood 2.1 mg/dL (1.6-2.4); Potassium, Blood 4.9 mmol/L (3.5-5.5)
--- NOTE | 2024-05-10 08:10 | NUR ---
NOTE CALLED DR. ANDREWS. NOTIFIED 101 TEMP, NOT WAKEFUL WITH STERNAL RUB. TOOK VITALS THIS AM AND SATS WERE 89% ON ROOM AIR. PLACED PT ON 2L N/C, SATS WENT UP TO 95%. XARELTO WAS ORDERED BUT PT CAN'T SWALLOW AND NEED DVT PROPHYLACTIC. NO ANTIBIOTIC ORDERED OR LACTIC ACID. MAGNESIUM WAS 1.5 THIS AM. PT + PTT WAS ELEVATED. DR. ANDREWS STATED HE WOULD PLACE ORDERS.
[2024-05-10] MEDS ORDERED: Acetaminophen 650 MG Supp PR PRN (08:15)
[2024-05-10] MEDS ORDERED: CefTRIAXone Sodium 2,000 MG in NS 100 ML IV SCH (09:00)
[2024-05-10] MEDS ORDERED: Enoxaparin 80 MG/0.8 ML SYR SC SCH (09:00)
[2024-05-10] MEDS ORDERED: Rivaroxaban 10 MG Tab PO SCH (09:00)
[2024-05-10] MEDS ORDERED: POTA10T PO (12:22)
[2024-05-10] MEDS ORDERED: FURO20 PO (12:22)
--- NOTE | 2024-05-10 13:01 | NUR ---
PT BACK FROM MRI. RESTARTED IV FLUIDS, GAVE TYENOL SUPPOSITORY FOR FEVER OF 101.9. PT SATURATED ATTENDS PRIOR TO GOING TO MRI. SHE DOES MOAN AND GRIMACE WITH TX. PT STOPS MOANING WITH REST. ABD IS SOFT, NO S/S OF PAIN WITH GENTLE PALPATION. SHE DOES NOT RESPOND VERBALLY TO QUESTIONS. SHE IS STILL ON 2 LPM V IA NC. TELE MONITOR ON. PLACING ICE PACKS UNDER ARMS TO ASSIST BRINGING TEMP. DOWN. BED ALARM ON AND BED IN LOW POSITION.
--- NOTE | 2024-05-10 14:34 | NUR ---
PT IS AWAKENING WITH VERBAL STIMULATION AT THIS TIME. DENTAL HYGEINIST IN FOR ORAL CARE DUE TO PT HAVING CAKED ON MUCOUS IN ORAL CAVITY AND UNABLE TO REMOVE. PT VSS, ON 1 LPM VIA NC AT THIS TIME. TEMPERATURE IMPROVED TO 99.8. ICE PACKS REMAIN UNDER ARMS. SON IN ROOM WITH PT.
--- NOTE | 2024-05-10 18:58 | NUR ---
SHIFT SUMMARY: PT IS A/O X 1, BEDREST AT THIS TIME. PT HAS BECOME MORE ALERT AND AWAKE AT END OF SHIFT. SHE WAS ABLE TO TELL US HER NAME AT AFTERNOON VIOTALS. SHE DID C/O INTERMITTENT ABD PAIN WITH URINATION. ABD IS SOFT. SHE IS URINATING YELLOW STRONG SMELLING URINE. SHE HAS IV FLUIDS NS AT 100 MLS CONTINUOUS AT THIS TIME. PT DID NOT GET UP OOB TODAY. SON IS INVOLVED AND HAS BEEN HERE MOST OF THE DAY.
[2024-05-11 03:35] VITALS: BP 112/46
--- NOTE | 2024-05-11 04:45 | NUR ---
SHIFT SUMMARY PT IS SLEEPY, EASILY AROUSABLE DURING THIS SHIFT. PT IS ORIENTED TO SELF AND PERSON. IN PT'S LONE PINE TONGUE, PT IS ABLE TO HAVE A CONVERSTATION WITH THIS DRIVE WORKER (IN SURINAMESE LANGUAGE). PT TELLING THIS DRIVE WORKER PLACE OF , MARITAL STATUS, LIVING SITUATION, AND SON'S NAME. PT COOPERATIVE WITH CARE. BED ALARM FOR SAFETY. NS INFUSING ORDERED. AT HS PRN TYLENOL SUPPOSITORY EFFECTIVE PER FACE SCALE. BARRIER CREAM APPLIED BILATERALLY TO RAW SKIN ON THE GROIN AREA. NO ACUTE EVENTS DURING THIS SHIFT. FREQUENT CHECKS BY THE BEDSIDE.
[2024-05-11 07:21] VITALS: BP 121/62
[2024-05-11 09:48] LABS: BASOPHILS ABSOLUTE AUTO 0.11 K/mm3 (0.00-0.23); BASOPHILS PERCENT AUTO 2 % (0-2); EOSINOPHILS ABSOLUTE AUTO 0.21 K/mm3 (0.00-0.68); EOSINOPHILS PERCENT AUTO 3 % (0-6); Hematocrit 34.8 % (33.0-51.0); Hemoglobin 11.3 g/dL (11.5-16.0); IMMATURE GRAN ABSOLUTE AUTO 0.05 K/mm3 (0.00-0.10); IMMATURE GRAN PERCENT AUTO 1 % (0-1); LYMPHOCYTES ABSOLUTE AUTO 1.85 K/mm3 (0.84-5.20); LYMPHOCYTES PERCENT AUTO 26 % (21-46); MONOCYTES ABSOLUTE AUTO 1.03 K/mm3 (0.16-1.47); MONOCYTES PERCENT AUTO 15 % (4-13); Mean Corpuscular HGB 30.7 pg (26.0-34.0); Mean Corpuscular HGB Conc 32.5 g/dL (31.5-36.5); Mean Corpuscular Volume 95 fL (80-100); Mean Platelet Volume 8.7 fL (9.1-12.4); NEUTROPHILS ABSOLUTE AUTO 3.86 K/mm3 (1.96-9.15); NEUTROPHILS PERCENT AUTO 54 % (41-73); Platelet Count 215 K/mm3 (150-400); RDW Coefficient Variation 13.7 % (11.7-14.2); RDW Standard Deviation 47.6 fL (35.1-46.3); Red Blood Cell Count 3.68 M/mm3 (3.80-5.20); White Blood Cell Count 7.11 K/mm3 (4.00-11.30)
[2024-05-11 10:07] LABS: Albumin, Blood 2.9 g/dL (3.4-5.0); Albumin/Globulin Ratio 0.8 (0.8-1.8); Bilirubin, Total 0.7 mg/dL (0.1-1.0); Bun/Creatinine Ratio 21.7 (12.0-20.0); Calcium, Blood 8.5 mg/dL (8.5-10.1); Creatinine, Blood 0.74 mg/dL (0.40-1.00); Globulin, Blood 3.8 g/dL (2.2-4.0); Potassium, Blood 3.7 mmol/L (3.5-5.5); Total Protein, Blood 6.7 g/dL (6.4-8.2)
[2024-05-11 16:14] VITALS: BP 108/60
[2024-05-11] MEDS ORDERED: Rivaroxaban 10 MG Tab PO SCH ×2 (18:00)
--- NOTE | 2024-05-11 18:41 | NUR ---
SHIFT SUMMARY PATIENT A/OX2-3 THIS SHIFT, ABLE TO MAKE NEEDS KNOWN. PLEASANT AND COOPERATIVE WITH STAFF, INTERMITTENTLY CONFUSED. SPEECH THERAPY EVALUATION TODAY, NECTAR THICK FLUIDS, REGULAR TEXTURE. SPOKE WITH PATIENT'S SON, SHANNON, AND UPDATED HIM ON PATIENT STATUS. PATIENT PARTICIPATED IN PT THIS EVENING AND ABLE TO AMBULATE WITH NURSING STAFF TO THE BATHROOM 1 PERSON ASSIST. PROVIDED PATIENT WITH RECLINER.NO OTHER CONCERNS AT THIS TIME. SHANNON AT BEDSIDE.
[2024-05-11 20:22] VITALS: BP 131/72
--- NOTE | 2024-05-12 03:05 | NUR ---
SHIFT SUMMARY PT IS A&O X3, CONTINUES TO SPEAK WITH HER [place] TONGUE DOMINICAN WITH THIS NURSE ASSESSOR. PT SHARING INFO ABOUT [place], ACCURATE INFO SUCH [employer] [place] ETC. AT HS PT UP SITTING IN RECLINER WATCHING TV. PT APPROPRIATELY CALLED STAFF WHEN READY FOR BED. PT C/O 5/10 CHRONIC BODY ACHES, TYLENOL SUPPOSITORY PRN ADMINISTERED ORDERED WITH GOOD EFFECTIVNESS. NS@100ML/HR INFUSING ORDERED. PT RESTED APPROXIMATELY SIX HRS DURING THIS SHIFT. TELE:SR @22. PT INCONTINENT OF URINE, ATTENDS IN PLACE. BED ALARM FOR SAFETY. BED AT THE LOWEST POSITION. FREQUENT CHECKS AND REPOSITIONING IN BED T/O THE NIGHT. NO ACUTE EVENTS, CALL LIGHT IN REACH.
[2024-05-12 03:06] VITALS: BP 104/59
[2024-05-12 06:06] LABS: BASOPHILS PERCENT AUTO 2 % (0-2); EOSINOPHILS ABSOLUTE AUTO 0.31 K/mm3 (0.00-0.68); EOSINOPHILS PERCENT AUTO 5 % (0-6); Hemoglobin 10.5 g/dL (11.5-16.0); IMMATURE GRAN ABSOLUTE AUTO 0.02 K/mm3 (0.00-0.10); IMMATURE GRAN PERCENT AUTO 0 % (0-1); LYMPHOCYTES ABSOLUTE AUTO 1.55 K/mm3 (0.84-5.20); LYMPHOCYTES PERCENT AUTO 26 % (21-46); MONOCYTES ABSOLUTE AUTO 0.87 K/mm3 (0.16-1.47); MONOCYTES PERCENT AUTO 15 % (4-13); Mean Corpuscular HGB 30.6 pg (26.0-34.0); Mean Corpuscular HGB Conc 32.8 g/dL (31.5-36.5); Mean Corpuscular Volume 93 fL (80-100); Mean Platelet Volume 8.4 fL (9.1-12.4); NEUTROPHILS ABSOLUTE AUTO 3.03 K/mm3 (1.96-9.15); NEUTROPHILS PERCENT AUTO 52 % (41-73); Platelet Count 210 K/mm3 (150-400); RDW Coefficient Variation 13.6 % (11.7-14.2); RDW Standard Deviation 46.3 fL (35.1-46.3); Red Blood Cell Count 3.43 M/mm3 (3.80-5.20); White Blood Cell Count 5.88 K/mm3 (4.00-11.30)
[2024-05-12 06:33] LABS: Calcium, Blood 8.1 mg/dL (8.5-10.1); Creatinine, Blood 0.71 mg/dL (0.40-1.00); Potassium, Blood 3.4 mmol/L (3.5-5.5)
[2024-05-12 07:43] VITALS: BP 124/72
[2024-05-12] MEDS ORDERED: Potassium Chloride 20 MEQ TabCR PO ONE (08:00)
[2024-05-12 14:52] VITALS: BP 137/66
[2024-05-12] MEDS ORDERED: Rivaroxaban 10 MG Tab PO SCH (18:00)
--- NOTE | 2024-05-12 18:31 | NUR ---
SHIFT SUMMARY PATIENT A/OX 2-4 THIS SHIFT. MORE CONFUSED UPON AROUSING FROM SLEEP. PATIENT PLEASANT AND COOPERATIVE WITH CARE, ABLE TO MAKE NEEDS KNOWN. CONTINUES ON TELEMETRY, NO EVENTS NOTED THIS SHIFT. CONTINUES WITH IV FLUIDS. INCONTINENT AND CONTINENT OF URINE. SON, SHANNON, AT BEDSIDE CURRENTLY. ABLE TO AMBULATE T BATHROOM AND GET UP TO THE RECLINER FOR MEALS 1 PERSON ASSIST. NO OTHER CONCERNS AT THIS TIME.
[2024-05-12] MEDS ORDERED: Acetaminophen 325 MG TABLET PO PRN (18:40)
[2024-05-12 19:50] VITALS: BP 132/71
--- NOTE | 2024-05-13 03:26 | NUR ---
SHIFT SUMMARY @ SON SHANNON BY THE BEDSIDE, PT RESTING IN THE RECLINER. A/O X3-4. 2 PERSON ASSIST TO BED WITH FWW. TELE:SR @85. PRN PO TYLENOL ADMINISTERED FOR BODY ACHES PER PT REQUEST (FACE SCALE 6). NS INFUSING ORERED. PT WEARING PULLUPS AND AN EXTRA PAD/INCONTINENT OF URINE. PT RESTING WELL T/O THE NIGHT HRS. NO ACUTE EVENTS DURING THIS SHIFT. FREQUENT CHECKS BY THE BEDSIDE. CALL LIGHT W/I REACH, BED AT THE LOWEST POSITION.
[2024-05-13 03:30] VITALS: BP 123/60
[2024-05-13 05:49] LABS: BASOPHILS ABSOLUTE AUTO 0.08 K/mm3 (0.00-0.23); BASOPHILS PERCENT AUTO 1 % (0-2); EOSINOPHILS ABSOLUTE AUTO 0.27 K/mm3 (0.00-0.68); EOSINOPHILS PERCENT AUTO 4 % (0-6); Hematocrit 34.3 % (33.0-51.0); Hemoglobin 11.3 g/dL (11.5-16.0); IMMATURE GRAN ABSOLUTE AUTO 0.01 K/mm3 (0.00-0.10); IMMATURE GRAN PERCENT AUTO 0 % (0-1); LYMPHOCYTES ABSOLUTE AUTO 1.18 K/mm3 (0.84-5.20); LYMPHOCYTES PERCENT AUTO 19 % (21-46); MONOCYTES ABSOLUTE AUTO 1.05 K/mm3 (0.16-1.47); MONOCYTES PERCENT AUTO 17 % (4-13); Mean Corpuscular HGB 30.5 pg (26.0-34.0); Mean Corpuscular HGB Conc 32.9 g/dL (31.5-36.5); Mean Corpuscular Volume 93 fL (80-100); Mean Platelet Volume 8.6 fL (9.1-12.4); NEUTROPHILS ABSOLUTE AUTO 3.64 K/mm3 (1.96-9.15); NEUTROPHILS PERCENT AUTO 58 % (41-73); Platelet Count 232 K/mm3 (150-400); RDW Coefficient Variation 13.7 % (11.7-14.2); RDW Standard Deviation 46.1 fL (35.1-46.3); Red Blood Cell Count 3.71 M/mm3 (3.80-5.20); White Blood Cell Count 6.23 K/mm3 (4.00-11.30)
[2024-05-13 06:34] LABS: Bun/Creatinine Ratio 13.2 (12.0-20.0); Calcium, Blood 8.9 mg/dL (8.5-10.1); Creatinine, Blood 0.76 mg/dL (0.40-1.00); Potassium, Blood 3.8 mmol/L (3.5-5.5)
[2024-05-13 07:20] VITALS: BP 131/73
[2024-05-13 14:39] VITALS: BP 122/72
[2024-05-13] MEDS ORDERED: NS 250 ML IV PRN (14:45)
--- NOTE | 2024-05-13 19:47 | NUR ---
SHIFT SUMMARY PATIENT A/OX1-4 THIS SHIFT. THIS MORNING DISORIENTED, BUT EASILY REORIENTED. ABLE TO MAKE NEEDS KNOWN. PLEASANT AND COOPERATVIE WITH CARE. TELEMETRY AND IV FLUIDS DISCONTINUED TODAY. PATIENT DENIES PAIN. SON, SHANNON, AT BEDSIDE. CONTACT PRECAUTIONS REMOVED PER INFECTION CONTROL. INCONTINENT AND CONTINENT OF URINE, ATTENDS IN PLACE. PLAN TO POSSIBLY DISCHARGE TOMORROW TO [facility]. NO OTHER CONCERNS AT THIS TIME.
[2024-05-13 20:48] VITALS: BP 127/72
[2024-05-14] VITALS (7 sets, daily range): BP systolic 85–133; BP diastolic 45–76
--- NOTE | 2024-05-14 05:14 | NUR ---
PT WITH SOME CONFUSION TO MOVED TO "A DIFFERENT ROOM " [place], EASILY REORIENTED, STATES NAME AND YEAR. REPOSITIONED AND KEPT DRY, NO CHANGES TO NEURO BASELINE, EQUAL INSTRUMENTATION CHEMIST AND SYMMETRY. NO C/O PAIN , FALL PRECAUTIONS MAINTAINED, CALL LIGHT WN REACH.
[2024-05-14] MEDS ORDERED: Omeprazole 20 MG CapCR PO SCH (06:00)
[2024-05-14 06:33] LABS: BASOPHILS ABSOLUTE AUTO 0.09 K/mm3 (0.00-0.23); BASOPHILS PERCENT AUTO 1 % (0-2); EOSINOPHILS PERCENT AUTO 4 % (0-6); Hematocrit 33.1 % (33.0-51.0); Hemoglobin 10.8 g/dL (11.5-16.0); IMMATURE GRAN ABSOLUTE AUTO 0.02 K/mm3 (0.00-0.10); IMMATURE GRAN PERCENT AUTO 0 % (0-1); LYMPHOCYTES ABSOLUTE AUTO 1.65 K/mm3 (0.84-5.20); LYMPHOCYTES PERCENT AUTO 24 % (21-46); MONOCYTES PERCENT AUTO 13 % (4-13); Mean Corpuscular HGB 30.1 pg (26.0-34.0); Mean Corpuscular HGB Conc 32.6 g/dL (31.5-36.5); Mean Corpuscular Volume 92 fL (80-100); Mean Platelet Volume 8.9 fL (9.1-12.4); NEUTROPHILS ABSOLUTE AUTO 3.84 K/mm3 (1.96-9.15); NEUTROPHILS PERCENT AUTO 57 % (41-73); Platelet Count 249 K/mm3 (150-400); RDW Coefficient Variation 13.9 % (11.7-14.2); RDW Standard Deviation 47.8 fL (35.1-46.3); Red Blood Cell Count 3.59 M/mm3 (3.80-5.20)
[2024-05-14 06:59] LABS: Albumin, Blood 2.8 g/dL (3.4-5.0); Albumin/Globulin Ratio 0.8 (0.8-1.8); Bilirubin, Total 0.5 mg/dL (0.1-1.0); Calcium, Blood 8.7 mg/dL (8.5-10.1); Creatinine, Blood 0.71 mg/dL (0.40-1.00); Globulin, Blood 3.7 g/dL (2.2-4.0); Magnesium, Blood 1.4 mg/dL (1.6-2.4); Phosphorus, Blood 2.7 mg/dL (2.5-4.9); Potassium, Blood 3.7 mmol/L (3.5-5.5); Total Protein, Blood 6.5 g/dL (6.4-8.2)
[2024-05-14] MEDS ORDERED: VISBIOME 112.51 EACH PO (11:05)
[2024-05-14] MEDS ORDERED: CEPH500 PO (11:06)
[2024-05-14] MEDS ORDERED: Cefpodoxime Proxetil 200 MG Tab PO ONE (11:20)
--- NOTE | 2024-05-14 15:19 | NUR ---
PT HYPOTENSIVE- EVENING VITALS WERE DONE AND SHOWED THE PT BP WAS 80'S OVER 50'S. SEVERAL ATTEMPTS TO RECHECK VITALS SHOWED THE SAME. CALLED DR KEVIN THE PT WAS SCHEDULED TO DC HOME. AWARE OF LOW BP AND HE SPOKE TO THE PT SON. AFTER HIS DISCUSSION WITH THE PT SON, DC WAS CANCELED, STATED HE WILL ORDER IVF AND THE PT IS OK TO HAVE THIN LIQUIDS SHE IS NOT DRINKING THE THICKENED LIQUIDS. SPOKE TO PT SON AND HE IS AWARE THE PT IS AN ASPIRATION RISK AND THAT SPEECH THERAPY RECOMENDED THE THICKENED LIQUIDS. SON IS AWARE AND AGREES THAT THE PT SHOULD HAVE THIN LIQUIDS, SHE WILL NOT DRINK THE THICKENED LIQUIDS.
[2024-05-14] MEDS ORDERED: NS 1,000 ML IV SCH (15:25)
--- NOTE | 2024-05-14 18:16 | NUR ---
SHIFT SUMMARY- PT ALERT AND ORIENTED TO SELF AND FAMILY WHEN SHE WAKES. THE SON CAME TO TRANSPORT HER FOR DISCHARGE AND HER BP WAS VERY LOW. DISCHARGE WAS CANCELED AND THE PT WAS STARTED IN IVF. BP RECHECK LATER SHOWED VSS. PT IS IN BED, WITH THE CALL LIGHT IN REACH, SHE HAS HAD A LARGE STOOL AND A SMALL STOOL WITH SOME FORMED GAMAL, SHE SEEMS TO HAVE MORE TO GO, BUT INDICATES HER ANAL AREA IS SORE. PLAN IS FOR THE PT TO STAY THROUGH THE WEEKEND. PER DR KEVIN PT IS OK TO HAVE THIN LIQUIDS, NO LONGER NECTAR THICK.
[2024-05-15 04:10] VITALS: BP 135/69
[2024-05-15 06:20] LABS: Bun/Creatinine Ratio 21.6 (12.0-20.0); Calcium, Blood 8.8 mg/dL (8.5-10.1); Creatinine, Blood 0.83 mg/dL (0.40-1.00)
--- NOTE | 2024-05-15 06:43 | NUR ---
NO ACUTE CHANGES OVERNIGHT. VITAL SIGNS WNL. PT FORGETFUL BUT PLEASANT AND COOPERATIVE WITH CARES. PLAN TO DC FRIDAY
[2024-05-15 07:30] VITALS: BP 126/70
[2024-05-15 08:07] LABS: Albumin, Blood 2.7 g/dL (3.4-5.0); Albumin/Globulin Ratio 0.8 (0.8-1.8); Bilirubin, Direct 0.2 mg/dL (0.0-0.3); Bilirubin, Indirect 0.2 mg/dL (0.1-0.7); Bilirubin, Total 0.4 mg/dL (0.1-1.0); Globulin, Blood 3.6 g/dL (2.2-4.0); Magnesium, Blood 1.4 mg/dL (1.6-2.4); Total Protein, Blood 6.3 g/dL (6.4-8.2)
[2024-05-15] MEDS ORDERED: Magnesium Sulf 2 GM/Water 50ML 50 ML IV ONE (10:15)
--- NOTE | 2024-05-15 11:46 | NUR ---
CALLED DR ANDREWS- PT WAS SUPPOSED TO DC HOME YESTERDAY ON 3 DAYS OF ABX. IV ABX STOPPED AND OT DOSE OF VANTIN WAS GIVEN PRIOR TO DC PLAN. DC WAS CANCELLED D/T HYPOTENSION. CALLED DR ANDREWS THE PT DOES NOT CURRENTLY HAVE AN ORDER FOR ABX SINCE SHE DID NOT DC HOME. AWARE AND WILL ORDER ABX.
[2024-05-15] MEDS ORDERED: Cefpodoxime Proxetil 200 MG Tab PO SCH (12:00)
[2024-05-15 14:24] VITALS: BP 108/66
--- NOTE | 2024-05-15 18:45 | NUR ---
SHIFT SUMMARY- PT HAS HAD NO ACUTE CHANGES T/O THE DAY. SHE WAS STARTED ON PO VANTIN TODAY. SHE HAS BEEN VERY WEAK DESPITE LOOKING BETTER TODAY WHEN COMPARED TO YESTERDAY. BUT YESTERDAY SHE WAS MORE PHYSICALLY ABLE TO TRANSFER HERSELF. PT IS CURRENTLY UP IN BED, CALL LIGHT IN REACH NO S&S OF DISTRESS NOTED. DENIES ANY PAIN. A&O X2. IVF INFUSING PER MD ORDER.
[2024-05-15 19:58] VITALS: BP 129/60
--- NOTE | 2024-05-16 06:13 | NUR ---
NO ACUTE CHANGES OVERNIGHT. PT SLEPT THROUGHOUT SHIFT, WOKEN FOR CARES. VSS. PLAN DC FRIDAY
[2024-05-16 07:19] VITALS: BP 154/79
[2024-05-16 07:27] LABS: Albumin, Blood 2.7 g/dL (3.4-5.0); Albumin/Globulin Ratio 0.7 (0.8-1.8); Bilirubin, Total 0.5 mg/dL (0.1-1.0); Bun/Creatinine Ratio 23.6 (12.0-20.0); Calcium, Blood 8.5 mg/dL (8.5-10.1); Creatinine, Blood 0.59 mg/dL (0.40-1.00); Globulin, Blood 3.7 g/dL (2.2-4.0); Magnesium, Blood 1.8 mg/dL (1.6-2.4); Phosphorus, Blood 2.6 mg/dL (2.5-4.9); Potassium, Blood 3.9 mmol/L (3.5-5.5); Total Protein, Blood 6.4 g/dL (6.4-8.2)
[2024-05-16 07:29] LABS: BASOPHILS ABSOLUTE AUTO 0.09 K/mm3 (0.00-0.23); BASOPHILS PERCENT AUTO 1 % (0-2); EOSINOPHILS ABSOLUTE AUTO 0.29 K/mm3 (0.00-0.68); EOSINOPHILS PERCENT AUTO 4 % (0-6); Hematocrit 34.8 % (33.0-51.0); Hemoglobin 11.1 g/dL (11.5-16.0); IMMATURE GRAN ABSOLUTE AUTO 0.04 K/mm3 (0.00-0.10); IMMATURE GRAN PERCENT AUTO 1 % (0-1); LYMPHOCYTES PERCENT AUTO 29 % (21-46); MONOCYTES ABSOLUTE AUTO 0.84 K/mm3 (0.16-1.47); MONOCYTES PERCENT AUTO 12 % (4-13); Mean Corpuscular HGB 30.7 pg (26.0-34.0); Mean Corpuscular HGB Conc 31.9 g/dL (31.5-36.5); Mean Corpuscular Volume 96 fL (80-100); Mean Platelet Volume 8.9 fL (9.1-12.4); NEUTROPHILS ABSOLUTE AUTO 3.62 K/mm3 (1.96-9.15); NEUTROPHILS PERCENT AUTO 53 % (41-73); Platelet Count 245 K/mm3 (150-400); RDW Coefficient Variation 14.1 % (11.7-14.2); RDW Standard Deviation 50.4 fL (35.1-46.3); Red Blood Cell Count 3.61 M/mm3 (3.80-5.20); White Blood Cell Count 6.88 K/mm3 (4.00-11.30)
--- NOTE | 2024-05-16 09:00 | NUR ---
pt sitting up in a chair for breakfast, a/ox1-2, cooperative with care, follows commands well, denies pain at this time, lungs are clear t/o, resp even and unlabored, no cough noted, hrr, no edema noted, ppp+1, cap refill <3 sec, vs stable, afebrile, piv site is clear and patent, infusing ns at 75mls/hr, btx4, abd flat soft nontender, incont, briefs in place, skin has a pink coccyx, otherwise skin is intact, marge, one person assist wtih a walker, yamile, call light in reach.
[2024-05-16 15:22] VITALS: BP 100/83
[2024-05-16] MEDS ORDERED: Polyethylene Glycol 3350 17 gm PO PRN (16:00)
[2024-05-16] MEDS ORDERED: Bisacodyl 10 MG Supp PR PRN (16:00)
--- NOTE | 2024-05-16 18:12 | NUR ---
pt has visible stool, recieved orders for suppos and miralax, she was able to take this and had a suppos, no further changes this shift. call light in reach.
[2024-05-16 20:27] VITALS: BP 120/63
[2024-05-16] MEDS ORDERED: Mineral Oil 133 ML Enema PR ONE (21:00)
[2024-05-17 03:10] VITALS: BP 130/73
[2024-05-17 07:18] VITALS: BP 150/68
[2024-05-17 07:24] LABS: BASOPHILS ABSOLUTE AUTO 0.12 K/mm3 (0.00-0.23); BASOPHILS PERCENT AUTO 1 % (0-2); EOSINOPHILS ABSOLUTE AUTO 0.25 K/mm3 (0.00-0.68); EOSINOPHILS PERCENT AUTO 2 % (0-6); Hematocrit 35.1 % (33.0-51.0); Hemoglobin 11.2 g/dL (11.5-16.0); IMMATURE GRAN ABSOLUTE AUTO 0.03 K/mm3 (0.00-0.10); IMMATURE GRAN PERCENT AUTO 0 % (0-1); LYMPHOCYTES ABSOLUTE AUTO 2.13 K/mm3 (0.84-5.20); LYMPHOCYTES PERCENT AUTO 19 % (21-46); MONOCYTES ABSOLUTE AUTO 1.04 K/mm3 (0.16-1.47); MONOCYTES PERCENT AUTO 9 % (4-13); Mean Corpuscular HGB 30.3 pg (26.0-34.0); Mean Corpuscular HGB Conc 31.9 g/dL (31.5-36.5); Mean Corpuscular Volume 95 fL (80-100); Mean Platelet Volume 8.8 fL (9.1-12.4); NEUTROPHILS PERCENT AUTO 68 % (41-73); Platelet Count 288 K/mm3 (150-400); RDW Coefficient Variation 13.7 % (11.7-14.2); RDW Standard Deviation 47.7 fL (35.1-46.3); White Blood Cell Count 11.17 K/mm3 (4.00-11.30)
[2024-05-17 07:53] LABS: Albumin/Globulin Ratio 0.8 (0.8-1.8); Bilirubin, Total 0.6 mg/dL (0.1-1.0); Bun/Creatinine Ratio 20.9 (12.0-20.0); Calcium, Blood 8.8 mg/dL (8.5-10.1); Creatinine, Blood 0.67 mg/dL (0.40-1.00); Globulin, Blood 3.9 g/dL (2.2-4.0); Total Protein, Blood 6.9 g/dL (6.4-8.2)
[2024-05-17 10:26] VITALS: BP 109/61
[2024-05-17] MEDS ORDERED: CEFP200 PO (14:55)
--- NOTE | 2024-05-17 15:35 | NUR ---
DISCHARGE NOTE- PT WAS GIVEN VERBAL AND WRITTEN DISCHARGE INSTRUCTIONS. SON WAS PRESENT FOR DISCHARGE TEACHING. PT WAS ESCORTED OUT VIA AND TAKEN BY HER SON BACK TO HER HOME AT [place]. NO S&S OF DISTRESS NOTED AT THE TIME OF DISCHARGE, IV DC'D PRIOR TO DISCHARGE, PT HAD A BED BATH PRIOR TO DC WELL.
== END 2024-05-17 15:19 | disposition home health service (06) | DRG 689 ==
LOC: ER 16:50 → MEDS 16:51 → ENPENDDIS 05-14 14:09 → MEDS 05-17 15:19
PROVIDERS: Emergency Medicine; Hospitalist; Internal Medicine; Nurse Practitioner Acute Care; Physician Assistant; ADMIT Internal Medicine
DX: N39.0 Urinary tract infection, site not specified (principal); G92.8 Other toxic encephalopathy; B96.20 Unspecified Escherichia coli [E. coli] as the cause of diseases classified elsewhere; R13.10 Dysphagia, unspecified; K21.9 Gastro-esophageal reflux disease without esophagitis; R33.9 Retention of urine, unspecified; F03.B0 Unspecified dementia, moderate, without behavioral disturbance, psychotic disturbance, mood disturbance, and anxiety; Z66 Do not resuscitate; I48.0 Paroxysmal atrial fibrillation; R74.01 Elevation of levels of liver transaminase levels; E83.42 Hypomagnesemia; J44.9 Chronic obstructive pulmonary disease, unspecified; G62.9 Polyneuropathy, unspecified; K59.00 Constipation, unspecified; Z85.118 Personal history of other malignant neoplasm of bronchus and lung; Z86.711 Personal history of pulmonary embolism; Z88.2 Allergy status to sulfonamides; Z91.011 Allergy to milk products; R29.810 Facial weakness; R47.1 Dysarthria and anarthria; Z79.01 Long term (current) use of anticoagulants; Z79.899 Other long term (current) drug therapy; I95.9 Hypotension, unspecified; Z79.2 Long term (current) use of antibiotics; Z90.710 Acquired absence of both cervix and uterus
CPT/HCPCS: 36415; 70450; 70496; 70498; 70551; 71045; 76705; 80048; 80053; 80076; 81001; 82140; 82947; 83735; 84100; 84145; 84439; 84443; 84484; 85025; 85027; 85610; 85730; 87077; 87086; 87186; 92526; 92610; 93005; 93010; 93306; 93970; 94640; 94664; 94760; 96372; 96374-59; 96375; 96375-59; 97110; 97116; 97162; 97166; 97530; 97535; 99285-25; A9270; G0378; J0696; J1650; J2060; J2405; J2470; J3475; J7030; Q9967

== ENCOUNTER → 2024-06-01 | Outpatient (CLI) | payer MEDICARE, OTHER ==
[~2024-06-01] MED LIST changes: +CEFP200 PO; +FURO20 PO; +POTA10T PO
[2024-06-01 14:02] LABS: Source, Urine Voided
[2024-06-01 14:55] LABS: Appearance, Urine Hazy (Clear); Bilirubin, Urine Neg (Neg); Blood, Urine 1+ (Neg); Color, Urine Yellow (P-Yellow); Glucose Qualitative, Urine Neg (Neg); Ketones, Urine Neg (Neg); Leukocyte Esterase, Urine 3+ (Neg); Nitrite, Urine Neg (Neg); Protein, Urine 1+ (Neg); Urobilinogen, Urine NORM (Normal)
[2024-06-01 15:22] LABS: Bacteria Many /hpf; Squamous Epithelial Cells Few /hpf (Few); Transitional Epithelial Cells Few /hpf (0-Rare); White Blood Cells, Urine TNTC /hpf (0-5)
== END | disposition home or self-care (01) ==
LOC: LAB 13:59 → LAB SHORT 13:59
PROVIDERS: Physician Assistant
DX: N39.0 Urinary tract infection, site not specified (principal)
CPT/HCPCS: 81001

== ENCOUNTER → 2024-06-29 | Outpatient (CLI) | payer MEDICARE, OTHER ==
[2024-06-29 15:59] LABS: Source, Urine Voided
[2024-06-29 17:30] LABS: Appearance, Urine Clear (Clear); Bilirubin, Urine Neg (Neg); Blood, Urine Neg (Neg); Color, Urine Yellow (P-Yellow); Glucose Qualitative, Urine Neg (Neg); Ketones, Urine Neg (Neg); Leukocyte Esterase, Urine 1+ (Neg); Nitrite, Urine Neg (Neg); Protein, Urine 1+ (Neg); Urobilinogen, Urine NORM (Normal)
[2024-06-29 17:43] LABS: Bacteria Mod /hpf; Red Blood Cells, Urine 0-2 /hpf (0-2); Squamous Epithelial Cells Few /hpf (Few)
== END | disposition home or self-care (01) ==
LOC: LAB SHORT 15:56 → LAB 15:56
PROVIDERS: Physician Assistant
DX: N39.0 Urinary tract infection, site not specified (principal)
CPT/HCPCS: 81001; 87086

== ENCOUNTER → 2024-08-25 | Outpatient (CLI) | payer MEDICARE, OTHER ==
[2024-08-25 15:14] LABS: Appearance, Urine Hazy (Clear); Bilirubin, Urine Neg (Neg); Blood, Urine 2+ (Neg); Glucose Qualitative, Urine Neg (Neg); Ketones, Urine Neg (Neg); Leukocyte Esterase, Urine 3+ (Neg); Nitrite, Urine Neg (Neg); Protein, Urine 2+ (Neg); Specific Gravity, Urine 1.015 (1.003-1.022); Urobilinogen, Urine NORM (Normal); pH, Urine 6.5 (5.0-8.0)
[2024-08-25 15:39] LABS: Color, Urine Pale Yellow (P-Yellow); Squamous Epithelial Cells Few /hpf (Few); White Blood Cells, Urine 50-100 /hpf (0-5)
[2024-08-25 15:40] LABS: Bacteria Many /hpf; Mucus Light (0-Heavy)
== END ==
LOC: LAB 14:11 → LAB SHORT 14:11
PROVIDERS: Urology
DX: N39.0 Urinary tract infection, site not specified (principal); Z87.440 Personal history of urinary (tract) infections
CPT/HCPCS: 81001; 87077; 87086; 87186

== ENCOUNTER → 2024-09-04 | Outpatient (CLI) | payer MEDICARE, OTHER ==
[2024-09-04 16:37] LABS: BASOPHILS ABSOLUTE AUTO 0.06 K/mm3 (0.00-0.23); BASOPHILS PERCENT AUTO 1 % (0-2); EOSINOPHILS ABSOLUTE AUTO 0.17 K/mm3 (0.00-0.68); EOSINOPHILS PERCENT AUTO 2 % (0-6); Hematocrit 38.9 % (33.0-51.0); Hemoglobin 12.6 g/dL (11.5-16.0); IMMATURE GRAN ABSOLUTE AUTO 0.03 K/mm3 (0.00-0.10); IMMATURE GRAN PERCENT AUTO 0 % (0-1); LYMPHOCYTES ABSOLUTE AUTO 1.76 K/mm3 (0.84-5.20); LYMPHOCYTES PERCENT AUTO 25 % (21-46); MONOCYTES ABSOLUTE AUTO 0.62 K/mm3 (0.16-1.47); MONOCYTES PERCENT AUTO 9 % (4-13); Mean Corpuscular HGB 29.4 pg (26.0-34.0); Mean Corpuscular HGB Conc 32.4 g/dL (31.5-36.5); Mean Corpuscular Volume 91 fL (80-100); Mean Platelet Volume 8.3 fL (9.1-12.4); NEUTROPHILS ABSOLUTE AUTO 4.32 K/mm3 (1.96-9.15); NEUTROPHILS PERCENT AUTO 62 % (41-73); Platelet Count 250 K/mm3 (150-400); RDW Coefficient Variation 13.9 % (11.7-14.2); RDW Standard Deviation 45.9 fL (35.1-46.3); Red Blood Cell Count 4.29 M/mm3 (3.80-5.20); White Blood Cell Count 6.96 K/mm3 (4.00-11.30)
[2024-09-04 16:48] LABS: Albumin, Blood 3.2 g/dL (3.4-5.0); Albumin/Globulin Ratio 0.8 (0.8-1.8); Bilirubin, Total 0.3 mg/dL (0.1-1.0); Bun/Creatinine Ratio 18.5 (12.0-20.0); Calcium, Blood 9.6 mg/dL (8.5-10.1); Creatinine, Blood 1.24 mg/dL (0.40-1.00); Globulin, Blood 4.2 g/dL (2.2-4.0); Potassium, Blood 3.9 mmol/L (3.5-5.5); Total Protein, Blood 7.4 g/dL (6.4-8.2)
== END ==
LOC: LAB SHORT 16:33 → LAB 16:33
PROVIDERS: Physician Assistant
DX: R06.02 Shortness of breath (principal)
CPT/HCPCS: 80053; 83880; 85025

== ENCOUNTER → 2024-09-22 | Outpatient (CLI) | payer MEDICARE, OTHER ==
[2024-09-22 16:38] LABS: Source, Urine Voided
[2024-09-22 17:33] LABS: Appearance, Urine Hazy (Clear); Bilirubin, Urine Neg (Neg); Blood, Urine 2+ (Neg); Glucose Qualitative, Urine Neg (Neg); Ketones, Urine Neg (Neg); Leukocyte Esterase, Urine 3+ (Neg); Nitrite, Urine Neg (Neg); Protein, Urine 1+ (Neg); Urobilinogen, Urine NORM (Normal)
[2024-09-22 17:43] LABS: Color, Urine Pale Yellow (P-Yellow)
[2024-09-22 17:44] LABS: White Blood Cells, Urine 25-50 /hpf (0-5)
[2024-09-22 17:45] LABS: Bacteria Few /hpf; Squamous Epithelial Cells Rare /hpf (Few)
== END ==
LOC: LAB SHORT 16:35 → LAB 16:35
PROVIDERS: Physician Assistant
DX: N39.0 Urinary tract infection, site not specified (principal)
CPT/HCPCS: 81001; 87077; 87086; 87186

== ENCOUNTER → 2024-09-30 | Outpatient (CLI) | payer MEDICARE, OTHER ==
[2024-09-30 16:39] LABS: Source, Urine Voided
[2024-09-30 17:31] LABS: Appearance, Urine Clear (Clear); Bilirubin, Urine Neg (Neg); Blood, Urine 1+ (Neg); Color, Urine Yellow (P-Yellow); Glucose Qualitative, Urine Neg (Neg); Ketones, Urine Neg (Neg); Leukocyte Esterase, Urine 3+ (Neg); Nitrite, Urine Pos (Neg); Protein, Urine Neg (Neg); Urobilinogen, Urine NORM (Normal)
[2024-09-30 17:53] LABS: Bacteria Mod /hpf; Red Blood Cells, Urine 0-2 /hpf (0-2); Squamous Epithelial Cells Rare /hpf (Few)
== END ==
LOC: LAB 16:36 → LAB SHORT 16:36
PROVIDERS: Physician Assistant
DX: N39.0 Urinary tract infection, site not specified (principal)
CPT/HCPCS: 81001; 87086

== ENCOUNTER → 2024-12-13 | Outpatient (CLI) | payer MEDICARE, OTHER ==
[2024-12-13 14:17] LABS: Source, Urine Clean Catch
[2024-12-13 15:14] LABS: Appearance, Urine Clear (Clear); Bilirubin, Urine Neg (Neg); Blood, Urine Neg (Neg); Color, Urine Yellow (P-Yellow); Glucose Qualitative, Urine Neg (Neg); Ketones, Urine Neg (Neg); Leukocyte Esterase, Urine Neg (Neg); Nitrite, Urine Neg (Neg); Protein, Urine Neg (Neg); Specific Gravity, Urine 1.015 (1.003-1.022); Urobilinogen, Urine NORM (Normal)
== END ==
LOC: LAB 13:20 → LAB SHORT 13:20
PROVIDERS: Physician Assistant
DX: N39.0 Urinary tract infection, site not specified (principal)
CPT/HCPCS: 81003

== ENCOUNTER → 2025-02-08 | Outpatient (CLI) | payer MEDICARE, OTHER ==
[2025-02-08 12:45] LABS: Source, Urine Clean Catch
[2025-02-08 13:20] LABS: Bilirubin, Urine Neg (Neg); Color, Urine Yellow (P-Yellow); Glucose Qualitative, Urine Neg (Neg); Ketones, Urine Neg (Neg); Leukocyte Esterase, Urine 2+ (Neg); Protein, Urine 1+ (Neg); Specific Gravity, Urine 1.010 (1.003-1.022); Urobilinogen, Urine NORM (Normal)
[2025-02-08 13:36] LABS: Red Blood Cells, Urine 0-2 /hpf (0-2); White Blood Cells, Urine TNTC /hpf (0-5)
== END | disposition home or self-care (01) ==
LOC: LAB SHORT 12:42 → LAB 12:42
PROVIDERS: Physician Assistant
DX: N39.0 Urinary tract infection, site not specified (principal)
CPT/HCPCS: 81001; 87077; 87086; 87186

== ENCOUNTER → 2025-04-13 | Outpatient (CLI) | payer MEDICARE, OTHER ==
[2025-04-13 17:48] LABS: Bilirubin, Urine Neg (Neg); Glucose Qualitative, Urine Neg (Neg); Ketones, Urine Neg (Neg); Leukocyte Esterase, Urine 3+ (Neg); Protein, Urine 1+ (Neg); Specific Gravity, Urine 1.015 (1.003-1.022); Urobilinogen, Urine NORM (Normal)
[2025-04-13 18:01] LABS: Color, Urine Pale Yellow (P-Yellow)
[2025-04-13 18:02] LABS: White Blood Cells, Urine TNTC /hpf (0-5)
== END ==
LOC: LAB SHORT 16:36 → LAB 16:36
PROVIDERS: Physician Assistant
DX: N39.0 Urinary tract infection, site not specified (principal)
CPT/HCPCS: 81001; 87077; 87086; 87186

== ENCOUNTER 2025-04-21 13:38 | Inpatient (IN) | payer MEDICARE, OTHER ==
[~2025-04-21] VITALS: Ht 167.6 cm; Wt 74.9 kg
[2025-04-21 14:34] LABS: BASOPHILS ABSOLUTE AUTO 0.07 K/mm3 (0.00-0.23); BASOPHILS PERCENT AUTO 1 % (0-2); EOSINOPHILS ABSOLUTE AUTO 0.06 K/mm3 (0.00-0.68); EOSINOPHILS PERCENT AUTO 1 % (0-6); Hematocrit 39.5 % (33.0-51.0); Hemoglobin 12.9 g/dL (11.5-16.0); IMMATURE GRAN ABSOLUTE AUTO 0.02 K/mm3 (0.00-0.10); IMMATURE GRAN PERCENT AUTO 0 % (0-1); LYMPHOCYTES ABSOLUTE AUTO 0.83 K/mm3 (0.84-5.20); LYMPHOCYTES PERCENT AUTO 9 % (21-46); MONOCYTES ABSOLUTE AUTO 1.10 K/mm3 (0.16-1.47); MONOCYTES PERCENT AUTO 11 % (4-13); Mean Corpuscular HGB Conc 32.7 g/dL (31.5-36.5); Mean Corpuscular Volume 93 fL (80-100); NEUTROPHILS ABSOLUTE AUTO 7.71 K/mm3 (1.96-9.15); NEUTROPHILS PERCENT AUTO 79 % (41-73); NRBC ABSOLUTE 0.00 K/mm3 (0.00-0.02); NRBC Auto 0.0 /100 WBC (0.0-0.2); Platelet Count 219 K/mm3 (150-400); RDW Coefficient Variation 13.0 % (11.7-14.2); RDW Standard Deviation 43.8 fL (35.1-46.3)
[2025-04-21 15:19] LABS: Alanine Aminotransfer (ALT/SGP 26.0 U/L (12-78); Albumin, Blood 3.6 g/dL (3.4-5.0); Albumin/Globulin Ratio 0.9 (0.8-1.8); Anion Gap 7.0 mmol/L (3-11); Aspartate Aminotrans (AST/SGOT 24.0 U/L (12-37); Bilirubin, Total 0.5 mg/dL (0.1-1.0); Blood Urea Nitrogen 20.0 mg/dL (8-24); CO2, Blood 29.0 mmol/L (21-32); Calcium, Blood 9.0 mg/dL (8.5-10.1); Chloride, Blood 101.0 mmol/L (98-108); Creatinine, Blood 0.79 mg/dL (0.40-1.00); Globulin, Blood 4.2 g/dL (2.2-4.0); Glucose, Blood 105.0 mg/dL (70-99); Potassium, Blood 4.4 mmol/L (3.5-5.5); Sodium, Blood 133.0 mmol/L (136-145); Total Protein, Blood 7.8 g/dL (6.4-8.2)
[2025-04-21] MEDS ORDERED: NS 1,000 ML IV SCH ×2 (15:30→18:00)
[2025-04-21] MEDS ORDERED: CefTRIAXone Sodium 1,000 MG in NS 100 ML IV ONE (15:30)
[2025-04-21 16:02] LABS: Source, Urine Clean Catch
[2025-04-21 16:14] LABS: Bilirubin, Urine Neg (Neg); Glucose Qualitative, Urine Neg (Neg); Ketones, Urine Neg (Neg); Leukocyte Esterase, Urine 1+ (Neg); Protein, Urine Neg (Neg); Specific Gravity, Urine 1.010 (1.003-1.022); Urobilinogen, Urine NORM (Normal)
[2025-04-21 16:40] LABS: Color, Urine Pale Yellow (P-Yellow)
[2025-04-21] MEDS ORDERED: Ondansetron HCl 2 MG / ML 2ML Vial IV PRN (17:50)
[2025-04-21] MEDS ORDERED: FLU VACC TS2025-26(6MOS UP)/PF 45 MCG/0.5 ML SYRINGE IM ONE (17:50)
[2025-04-21] MEDS ORDERED: Enoxaparin 40 MG/0.4 ML SYR SC SCH (18:00)
[2025-04-21] MEDS ORDERED: Remdesivir (EUA) 200 MG in NS 250 ML IV ONE (18:00)
[2025-04-21] MEDS ORDERED: Magnesium Hydroxide Conc 10 ML UDC PO PRN (18:10)
[2025-04-21] MEDS ORDERED: Dexamethasone Sod Phos 10 MG/ML 1ML VIAL IV SCH (19:00)
[2025-04-21 22:36] VITALS: BP 122/66
[2025-04-22] MEDS ORDERED: ALEN70 PO (02:23)
[2025-04-22] MEDS ORDERED: AMOX250 PO (02:26)
[2025-04-22] MEDS ORDERED: BISA10S PR (02:28)
[2025-04-22] MEDS ORDERED: PAROEX473 ML MM (02:31)
[2025-04-22] MEDS ORDERED: ESTRADIOL42.5 GM VAG (02:35)
[2025-04-22] MEDS ORDERED: MELATONIN 5 MG1 EACH PO (02:41)
[2025-04-22] MEDS ORDERED: DULCOLAX400 MG/5 M RIGHTEAR (02:43)
[2025-04-22] MEDS ORDERED: DULCOLAX400 MG/5 M PO (02:44)
[2025-04-22] MEDS ORDERED: ASCO500 PO ×2 (02:48→03:10)
[2025-04-22] MEDS ORDERED: VSL#3 112.5B1 EACH (02:49)
[2025-04-22] MEDS ORDERED: XARELTO20 M1 PO (02:50)
[2025-04-22] MEDS ORDERED: Cefadroxil500 MG PO (02:52)
[2025-04-22] MEDS ORDERED: DENTA (02:54)
[2025-04-22] MEDS ORDERED: [UNRECOGNIZED DRUG - OTHER] (02:54)
[2025-04-22 03:31] VITALS: BP 116/63
--- NOTE | 2025-04-22 05:15 | NUR ---
SHIFT SUMMARY PT ARRIVED FROM THE ER AROUND 2200. SON ARRIVED WT PT AND PROVIDED HISTORY. PT ALERT TO SELF AND VERY SOMNOLENT. PT ONLY C/O PAIN WHEN TURNING ON RIGHT SIDE BUT WOULD FALL RIGHT BACK TO SLEEP AFTER REPOSITION. ORIENTED TO ROOM. NS INFUSING @ 75ml/hr x1 BAG. PT ON 1L OF OXYGEN DURING THE NIGHT AND SATING >93%. PT RUNNING NSR AT 75 ON TELE. VSS. BED ALARM ON. BED IN LOWEST POSITION AND CALL LIGHT IN REACH.
[2025-04-22 06:17] LABS: BASOPHILS ABSOLUTE AUTO 0.02 K/mm3 (0.00-0.23); BASOPHILS PERCENT AUTO 0 % (0-2); EOSINOPHILS ABSOLUTE AUTO 0.00 K/mm3 (0.00-0.68); EOSINOPHILS PERCENT AUTO 0 % (0-6); Hematocrit 36.9 % (33.0-51.0); Hemoglobin 12.1 g/dL (11.5-16.0); IMMATURE GRAN ABSOLUTE AUTO 0.05 K/mm3 (0.00-0.10); IMMATURE GRAN PERCENT AUTO 1 % (0-1); LYMPHOCYTES ABSOLUTE AUTO 0.65 K/mm3 (0.84-5.20); LYMPHOCYTES PERCENT AUTO 8 % (21-46); MONOCYTES ABSOLUTE AUTO 0.15 K/mm3 (0.16-1.47); MONOCYTES PERCENT AUTO 2 % (4-13); Mean Corpuscular HGB Conc 32.8 g/dL (31.5-36.5); Mean Corpuscular Volume 94 fL (80-100); NEUTROPHILS ABSOLUTE AUTO 6.90 K/mm3 (1.96-9.15); NEUTROPHILS PERCENT AUTO 89 % (41-73); NRBC ABSOLUTE 0.00 K/mm3 (0.00-0.02); NRBC Auto 0.0 /100 WBC (0.0-0.2); Platelet Count 199 K/mm3 (150-400); RDW Coefficient Variation 12.7 % (11.7-14.2); RDW Standard Deviation 44.2 fL (35.1-46.3)
[2025-04-22 06:46] LABS: Alanine Aminotransfer (ALT/SGP 23.0 U/L (12-78); Albumin, Blood 2.9 g/dL (3.4-5.0); Albumin/Globulin Ratio 0.7 (0.8-1.8); Anion Gap 10.0 mmol/L (3-11); Aspartate Aminotrans (AST/SGOT 22.0 U/L (12-37); Bilirubin, Total 0.3 mg/dL (0.1-1.0); Blood Urea Nitrogen 17.0 mg/dL (8-24); CO2, Blood 24.0 mmol/L (21-32); Calcium, Blood 8.2 mg/dL (8.5-10.1); Chloride, Blood 104.0 mmol/L (98-108); Creatinine, Blood 0.67 mg/dL (0.40-1.00); Globulin, Blood 4.0 g/dL (2.2-4.0); Glucose, Blood 130.0 mg/dL (70-99); Potassium, Blood 3.8 mmol/L (3.5-5.5); Sodium, Blood 134.0 mmol/L (136-145); Total Protein, Blood 6.9 g/dL (6.4-8.2)
[2025-04-22 08:13] VITALS: BP 128/85
[2025-04-22] MEDS ORDERED: Remdesivir (EUA) 100 MG in NS 250 ML IV SCH (12:00)
[2025-04-22 12:20] VITALS: BP 116/51
[2025-04-22] MEDS ORDERED: NS 250 ML IV PRN (15:20)
[2025-04-22 15:39] VITALS: BP 97/53
[2025-04-22] MEDS ORDERED: Ipratropium Bromide INH 0.02% 0.5 mg/2.5ML Vial INH SCH (15:45)
[2025-04-22] MEDS ORDERED: CefTRIAXone Sodium 1,000 MG in NS 100 ML IV SCH (16:00)
[2025-04-22 17:24] VITALS: BP 105/51
--- NOTE | 2025-04-22 17:28 | NUR ---
SHIFT SUMMARY: PATIENT A/O TO SELF AND PERSON, PLEASANTLY CONFUSED AND FOLLOW DIRECTION. PATIENT DENIES CP/PRESSURE, SOB, N/V AND DIZZINESS. PATIENT SBP SOFT THIS PM, BUT STABLE c A MAP OF (68-70). DR. HOLT IS AWARE AND STARTED HER ON LR AT 100 MLS/HR. PATIENT ON RA, SATTING 93-95%, LUNGS COARSE/WHEEZY. PATIENT RECEIVED IV ABX PER ORDER. PATIENT ON REGULAR DIET, TOLERATED WELL, CONT/INCON OF BAB, 1 ASSIST TO BSC. PATIENT SAT UP IN THE RECLINER CHAIR FOR ABOUT THREE HRS THIS SHIFT. PATIENT SON(SHANNON) VISITED TODAY, UPDATE GIVEN TO SON AND HE VERBALIZED UNDERSTANDING AND NO FURTHER QUESTIONS. BED ALARM ON FOR SAFETY. CALL LIGHT IN REACH.
[2025-04-22 19:31] VITALS: BP 116/51
[2025-04-22] MEDS ORDERED: Polyethylene Glycol 3350 17 gm PO SCH (21:00)
[2025-04-22] MEDS ORDERED: Docusate Sodium/Senna 1 Tab PO SCH (21:00)
[2025-04-22] MEDS ORDERED: Lactobacil 2-S.Thermo-Bifido 1 1 Cap PO SCH (21:00)
[2025-04-23] MEDS ORDERED: Ipratropium Bromide INH 0.02% 0.5 mg/2.5ML Vial INH SCH (01:17)
[2025-04-23 03:18] VITALS: BP 107/51
--- NOTE | 2025-04-23 05:12 | NUR ---
SHIFT SUMMARY PT A&Ox2. PLEASANTLY CONFUSED AND EASILY REDIRECTABLE. ONE TIME BAG OF LR COMPLETED AT 0430. PT ON 1L OF OXYGEN DURING THE NIGHT FOR DESATING. MEPALEX PLACED ON LEFT BUTTOCK D/T RED AREA. RT AT BEDSIDE DURING THE SHIFT FOR BREATHING TREATMENTS. NO C/O PAIN. VSS BUT SBP REMAINS SOFT. BED ALARM ON. BED IN LOWEST POSITION AND CALL LIGHT IN REACH.
[2025-04-23 05:53] LABS: BASOPHILS ABSOLUTE AUTO 0.01 K/mm3 (0.00-0.23); BASOPHILS PERCENT AUTO 0 % (0-2); EOSINOPHILS ABSOLUTE AUTO 0.00 K/mm3 (0.00-0.68); EOSINOPHILS PERCENT AUTO 0 % (0-6); Hematocrit 30.8 % (33.0-51.0); Hemoglobin 10.4 g/dL (11.5-16.0); IMMATURE GRAN ABSOLUTE AUTO 0.02 K/mm3 (0.00-0.10); IMMATURE GRAN PERCENT AUTO 0 % (0-1); LYMPHOCYTES ABSOLUTE AUTO 1.20 K/mm3 (0.84-5.20); LYMPHOCYTES PERCENT AUTO 16 % (21-46); MONOCYTES ABSOLUTE AUTO 0.98 K/mm3 (0.16-1.47); MONOCYTES PERCENT AUTO 13 % (4-13); Mean Corpuscular HGB Conc 33.8 g/dL (31.5-36.5); Mean Corpuscular Volume 92 fL (80-100); NEUTROPHILS ABSOLUTE AUTO 5.10 K/mm3 (1.96-9.15); NEUTROPHILS PERCENT AUTO 70 % (41-73); NRBC ABSOLUTE 0.00 K/mm3 (0.00-0.02); NRBC Auto 0.0 /100 WBC (0.0-0.2); Platelet Count 190 K/mm3 (150-400); RDW Coefficient Variation 13.0 % (11.7-14.2); RDW Standard Deviation 43.8 fL (35.1-46.3)
[2025-04-23 06:11] LABS: Anion Gap 8.0 mmol/L (3-11); Blood Urea Nitrogen 30.0 mg/dL (8-24); CO2, Blood 24.0 mmol/L (21-32); Calcium, Blood 7.8 mg/dL (8.5-10.1); Chloride, Blood 108.0 mmol/L (98-108); Creatinine, Blood 0.79 mg/dL (0.40-1.00); Glucose, Blood 116.0 mg/dL (70-99); Potassium, Blood 3.9 mmol/L (3.5-5.5); Sodium, Blood 136.0 mmol/L (136-145)
[2025-04-23 07:11] LABS: Influenza A, PCR NEGATIVE (NEGATIVE); Influenza B, PCR NEGATIVE (NEGATIVE); Resp Syncytial Virus, PCR NEGATIVE (NEGATIVE)
[2025-04-23 07:49] VITALS: BP 108/57
[2025-04-23 07:49] LABS: SARS-Cov-2 (COVID-19) PCR, MMC POSITIVE (NEGATIVE)
[2025-04-23] MEDS ORDERED: Multivitamins 1 Tab PO SCH (09:00)
[2025-04-23] MEDS ORDERED: Potassium Chloride 10 Meq Tablet SA PO SCH (09:00)
[2025-04-23 15:47] VITALS: BP 104/68
--- NOTE | 2025-04-23 17:35 | NUR ---
SHIFT SUMMARY: PATIENT A/O TO SELF AND PERSON, CONFUSED AND OT EPISODE OF AGITATION MID MORNING. PATIENT REFUSED IV REMDESIVIR, DR. HOLT IS AWARE AND MADE CHANGES ON HER MEDICATION. PATIENT DENIES CP/PRESSURE, SOB, N/V AND DIZZINESS. PATIENT ON RA, SATTING 93-94%. PATIENT SAT UP IN RECLINER CHAIR, TOLERATING WELL. PATIENT HAS GOOD APPETITE, CONTIN/INCON OF BLADDER, AMBULATES TO BATHROOM c 1 ASSIST/FWW. PATIENT SON (SHANNON) VISITED TODAY, UPDATE GIVEN c PLAN OF CARE. SHANNON VERBALIZED UNDERSTANDING AND NO FURTHER QUESTIONS. VITAL SIGNS REVIEWED. CHAIR ALARM ON FOR SAFETY. CALL LIGHT IN REACH.
[2025-04-23 20:39] VITALS: BP 108/55
[2025-04-24 02:27] VITALS: BP 125/70
--- NOTE | 2025-04-24 04:24 | NUR ---
SHIFT SUMMARY PT A&Ox3. PLEASANTLY CONFUSED. NO C/O PAIN. PT HAS OCCASIONAL HACKING COUGH. PLACED ON 1L OF OXYGEN AT NIGHT. VSS BUT SBP REMAINS SOFT. NO ACUTE CHANGES. BED ALARM ON. BED IN LOWEST POSITION AND CALL LIGHT IN REACH.
[2025-04-24 06:19] LABS: BASOPHILS ABSOLUTE AUTO 0.00 K/mm3 (0.00-0.23); BASOPHILS PERCENT AUTO 0 % (0-2); EOSINOPHILS ABSOLUTE AUTO 0.00 K/mm3 (0.00-0.68); EOSINOPHILS PERCENT AUTO 0 % (0-6); Hematocrit 34.1 % (33.0-51.0); Hemoglobin 11.1 g/dL (11.5-16.0); IMMATURE GRAN ABSOLUTE AUTO 0.05 K/mm3 (0.00-0.10); IMMATURE GRAN PERCENT AUTO 1 % (0-1); LYMPHOCYTES ABSOLUTE AUTO 1.50 K/mm3 (0.84-5.20); LYMPHOCYTES PERCENT AUTO 23 % (21-46); MONOCYTES ABSOLUTE AUTO 0.74 K/mm3 (0.16-1.47); MONOCYTES PERCENT AUTO 11 % (4-13); Mean Corpuscular HGB Conc 32.6 g/dL (31.5-36.5); Mean Corpuscular Volume 92 fL (80-100); NEUTROPHILS ABSOLUTE AUTO 4.38 K/mm3 (1.96-9.15); NEUTROPHILS PERCENT AUTO 66 % (41-73); NRBC ABSOLUTE 0.00 K/mm3 (0.00-0.02); NRBC Auto 0.0 /100 WBC (0.0-0.2); Platelet Count 213 K/mm3 (150-400); RDW Coefficient Variation 12.8 % (11.7-14.2); RDW Standard Deviation 43.8 fL (35.1-46.3)
[2025-04-24 06:39] LABS: Anion Gap 9.0 mmol/L (3-11); Blood Urea Nitrogen 31.0 mg/dL (8-24); CO2, Blood 25.0 mmol/L (21-32); Calcium, Blood 8.1 mg/dL (8.5-10.1); Chloride, Blood 105.0 mmol/L (98-108); Creatinine, Blood 0.82 mg/dL (0.40-1.00); Glucose, Blood 102.0 mg/dL (70-99); Potassium, Blood 3.7 mmol/L (3.5-5.5); Sodium, Blood 135.0 mmol/L (136-145)
[2025-04-24 07:29] VITALS: BP 122/67
[2025-04-24 15:55] VITALS: BP 99/61
--- NOTE | 2025-04-24 18:04 | NUR ---
SHIFT SUMMARY: PATIENT A/OX2, PLEASANTLY CONFUSED, FOLLOWING COMMANDS, PLEASANT AND COOPERATIVE c CARE. PATIENT ON RA, SATTING 94-95% LUNGS CLEARS T/O TO AUSCULTATION. PATIENT DENIES CP/PRESSURE, SOB, N/V AND DIZZINESS. PATIENT INCONT/CONTIN OF BAB, AMBULATES TO BATHROOM c FWW/ 1 ASSIST. PATIENT SHOWERED TODAY c MINIMAL ELECTRONIC COMPONENT PROCESSOR AND LINEN CHANGED. VITAL SIGNS REVIEWED. PATIENT UP IN CHAIR HAVING DINNER. CHAIR ALARM ON FOR SAFETY. CALL LIGHT IN REACH.
[2025-04-24 19:56] VITALS: BP 102/56
[2025-04-25 03:28] VITALS: BP 101/51
--- NOTE | 2025-04-25 05:03 | NUR ---
SHIFT SUMMARY: PT AOX2-3 WITHE SOME CONFUSION AND FORGETFULNESS, VERY PLEASANT. COOPERATIVE IN CARE AND FOLLOWS COMMANDS, NOT IMPULSIVE. PT TOLERATING MEDICATIONS WELL. VSS, NO ACUTE OVERNIGHT EVENTS. PT IN BED SLEEPING, BED IN LOWEST POSITION, CALL LIGHT IN REACH. CONTNINUING CARE.
[2025-04-25 06:18] LABS: BASOPHILS ABSOLUTE AUTO 0.05 K/mm3 (0.00-0.23); BASOPHILS PERCENT AUTO 1 % (0-2); EOSINOPHILS ABSOLUTE AUTO 0.11 K/mm3 (0.00-0.68); EOSINOPHILS PERCENT AUTO 2 % (0-6); Hematocrit 34.5 % (33.0-51.0); Hemoglobin 11.3 g/dL (11.5-16.0); IMMATURE GRAN ABSOLUTE AUTO 0.02 K/mm3 (0.00-0.10); IMMATURE GRAN PERCENT AUTO 0 % (0-1); LYMPHOCYTES ABSOLUTE AUTO 3.10 K/mm3 (0.84-5.20); LYMPHOCYTES PERCENT AUTO 44 % (21-46); MONOCYTES ABSOLUTE AUTO 0.82 K/mm3 (0.16-1.47); MONOCYTES PERCENT AUTO 12 % (4-13); Mean Corpuscular HGB Conc 32.8 g/dL (31.5-36.5); Mean Corpuscular Volume 93 fL (80-100); NEUTROPHILS ABSOLUTE AUTO 2.88 K/mm3 (1.96-9.15); NEUTROPHILS PERCENT AUTO 41 % (41-73); NRBC ABSOLUTE 0.00 K/mm3 (0.00-0.02); NRBC Auto 0.0 /100 WBC (0.0-0.2); Platelet Count 211 K/mm3 (150-400); RDW Coefficient Variation 13.0 % (11.7-14.2); RDW Standard Deviation 44.5 fL (35.1-46.3)
[2025-04-25 06:43] LABS: Anion Gap 7.0 mmol/L (3-11); Blood Urea Nitrogen 29.0 mg/dL (8-24); CO2, Blood 26.0 mmol/L (21-32); Calcium, Blood 8.0 mg/dL (8.5-10.1); Chloride, Blood 107.0 mmol/L (98-108); Creatinine, Blood 0.85 mg/dL (0.40-1.00); Glucose, Blood 89.0 mg/dL (70-99); Potassium, Blood 4.0 mmol/L (3.5-5.5); Sodium, Blood 136.0 mmol/L (136-145)
[2025-04-25 07:42] VITALS: BP 119/68
[2025-04-25 15:43] VITALS: BP 96/51
[2025-04-25 15:45] VITALS: BP 91/54
--- NOTE | 2025-04-25 18:44 | NUR ---
SUMMARY PT STILL RECEIVING IV ANTIBIOTICS. PT/OT EVALUATION ORDERED BY DR. KEVIN FOR DISCHARGE PLANNING. PT ANSWERS ALL ORIENTATION QUESTIONS APPROPRIATELY. FORGETFUL. DOES NOT CALL APPROPRIATELY. INCONTINENT, ATTENDS CHANGED PRN SOILAGE. OT EVAL COMPLETED TODAY. UP IN CHAIR FOR A COUPLE HOURS TODAY. SLEPT ON AND OFF THROUGHOUT DAY. DOES NOT ATTEMPT TO GET OOB.
[2025-04-25 19:26] VITALS: BP 100/49
[2025-04-26 04:19] VITALS: BP 125/70
--- NOTE | 2025-04-26 04:54 | NUR ---
SHIFT SUMMARY: PT AOX3-4, CAN ANSWER ORIENTATION QUESTIONS APPROPRAITELY WITH TIME, BUT IS DEFINITELY CONFUSED AND REQUIRES ORIENTATION. NOT IMPULSIVE AND IS COOPERATIVE IN CARE. HAD SEVERAL EPISODES OF INCONTINENCE AND DUE TO THE WOUND ON HER SACRUM, A PUREWICK WAS PUT IN PLACE. TOLERATING MEDICATIONS WELL. CALLS APPROPRIATELY AT TIMES. NO ACUTE OVERNIGHT EVENTS. PT IN BED RESTING, BED IN LOWEST POSITION, CALL LIGHT IN REACH. CONTINUING CARE.
[2025-04-26 07:14] VITALS: BP 114/74
--- NOTE | 2025-04-26 14:03 | NUR ---
DISCHARGE PT DISCHARGED BACK TO [facility] TODAY. ANTHONY FROM [facility] CAME IN TO EVALUATE THE PATIENT AND AGREED TO ACCEPT PATIENT BACK. NO NEW MEDS NOTED ON DISCHARGE. IV REMOVED & INTACT. PT SONSHANNON IN AND UPDATED ON DC INSTRUCTIONS AND FOLLOW UP APPOINTMENT. SON SHANNON WAS THE RIDE FOR THE PATIENT BACK TO [facility]. WHEELED OUT OF UNIT BY AIDE.
== END 2025-04-26 13:51 | disposition home or self-care (01) | DRG 871 ==
LOC: ER 13:38 → ERHOLD 17:33 → MEDS 17:33
PROVIDERS: Family Medicine; Student in an Organized Health Care Education/Training Program; ADMIT Internal Medicine
PROC: XW033E5 Introduction of Remdesivir Anti-infective into Peripheral Vein, Percutaneous Approach, New Technology Group 5 (ICD-10-PCS; principal; 2025-04-21)
PROC: 3E0333Z Introduction of Anti-inflammatory into Peripheral Vein, Percutaneous Approach (ICD-10-PCS; 2025-04-21)
PROC: 3E03329 Introduction of Other Anti-infective into Peripheral Vein, Percutaneous Approach (ICD-10-PCS; 2025-04-21)
DX: A41.89 Other specified sepsis (principal); G92.8 Other toxic encephalopathy; J96.01 Acute respiratory failure with hypoxia; U07.1 COVID-19; E87.1 Hypo-osmolality and hyponatremia; N39.0 Urinary tract infection, site not specified; K59.00 Constipation, unspecified; Z66 Do not resuscitate; F03.90 Unspecified dementia, unspecified severity, without behavioral disturbance, psychotic disturbance, mood disturbance, and anxiety; A41.51 Sepsis due to Escherichia coli [E. coli]; K21.9 Gastro-esophageal reflux disease without esophagitis; Z85.118 Personal history of other malignant neoplasm of bronchus and lung; Z86.711 Personal history of pulmonary embolism; Z88.2 Allergy status to sulfonamides; Z79.01 Long term (current) use of anticoagulants
CPT/HCPCS: 36415; 74177; 80048; 80053; 81001; 83605; 83690; 83880; 85025; 87040; 87077; 87086; 87186; 87637; 93005; 93010; 94640; 94664; 94760; 96374; 97165; 97530; 97535; 99285-25; A6590; A9270; J0248; J0696; J1100; J1650; J7030; J7050; J7120; Q9967

== ENCOUNTER → 2025-06-04 | Outpatient (CLI) | payer MEDICARE, OTHER ==
[~2025-06-04] MED LIST changes: +ALEN70 PO; +AMOX250 PO; +ASCO500 PO; +Cefadroxil500 MG PO; +DENTA; +DULCOLAX400 MG/5 M RIGHTEAR; +ESTRADIOL42.5 GM VAG; +MELATONIN 5 MG1 EACH PO; +PAROEX473 ML MM; +VSL#3 112.5B1 EACH; +XARELTO20 M1 PO; +[UNRECOGNIZED DRUG - OTHER]
== END ==
LOC: LAB SHORT 15:08 → LAB 15:08
DX: R82.998 Other abnormal findings in urine (principal)
CPT/HCPCS: 87086